=== PATIENT | female | born 1940 | race African-American/Black ===

== ENCOUNTER 2016-12-16 14:58 | Emergency (ER) | payer MEDICARE, OTHER ==
[2016-12-16 13:44] LABS: BASOPHILS 0.4 %; BASOPHILS ABSOLUTE 0.06 10/3/uL (0.0-0.16); EOSINOPHILS 0.4 %; EOSINOPHILS ABSOLUTE 0.05 10/3/uL (0.0-0.53); ER CBC TAT 0 Hrs 03 Mins; HEMATOCRIT 35.9 % (36.0-48.0); HEMOGLOBIN 11.5 g/dL (12.0-16.0); IMMATURE GRANULOCYTES 0.5 %; IMMATURE GRANULOCYTES ABSOLUTE 0.07 10/3/uL (0.0-0.11); LYMPHOCYTES 13.9 %; LYMPHOCYTES ABSOLUTE 1.96 10/3/uL (0.67-4.30); MEAN CORPUSCULAR HEMOGLOB 28.8 pg (26.0-34.0); MEAN PLATELET VOLUME 9.9 fL (9.2-13.0); MONOCYTES 12.5 %; MONOCYTES ABSOLUTE 1.76 10/3/uL (0.21-1.20); NEUTROPHILS 72.3 %; NEUTROPHILS ABSOLUTE 10.17 10/3/uL (2.02-8.40); PLATELET COUNT 322 10/3/uL (150-400); RBC DISTRIBUTION WIDTH 14.7 % (12.0-16.0); RED CELL COUNT 3.99 10/6/uL (4.0-5.6); WHITE BLOOD CELLS 14.1 10/3/uL (4.5-10.5)
[2016-12-16 13:45] LABS: MANUAL DIFF NO %
[2016-12-16 13:54] LABS: INTERNATIONAL NORMAL RATI 1.1 UNITS (-); PROTIME (NOT ORD) 13.7 SEC (12.0-14.5)
[2016-12-16 14:02] LABS: A/G RATIO 0.9 (0.7-1.9); ALBUMIN 3.8 G/DL (3.5-5.0); ALKALINE PHOSPHATASE 137 U/L (45-117); CALCIUM, SERUM 9.2 MG/DL (8.5-10.4); GFR AFRICAN AMERICAN 7 ML/MIN (>=60); GFR NON AFRICAN AMERICAN 6 ML/MIN (>=60); GLOBULIN 4.2 G/DL (2.5-4.1); POTASSIUM, SERUM 3.6 MMOL/L (3.5-5.3); SGOT(AST) 12 U/L (5-40); SGPT(ALT) 15 U/L (5-65); SODIUM, SERUM 138 MMOL/L (135-148); TOTAL BILIRUBIN 0.4 MG/DL (0-1.2); TROPONIN I 0.04 NG/ML (<0.05)
[2016-12-16 14:03] LABS: BUN (BLOOD UREA NITROGEN) 26 MG/DL (6-23); CHLORIDE, SERUM 92 MMOL/L (96-112); CO2 (CARBON DIOXIDE) 34 MMOL/L (24-34); GLUCOSE, SERUM 178 MG/DL (60-99)
[~2016-12-16 14:58] MED LIST: APRES25 PO; ASAB PO; CARDCD240 PO; CARTIA XT240 MG/24 PO; COREG25 PO; COREG6 PO; HUMALOGMIX SC; MEPERITAB50 MG PO; MEVACOR PO; NOVOLOGMIX SC; PLAVIX PO; PR12.5 PO; PR25 PO; SEVE800T PO
== END 2016-12-16 15:59 | disposition home or self-care (01) ==
LOC: ER 14:58
PROVIDERS: Emergency Medicine
DX: R00.1 Bradycardia, unspecified (principal); I10 Essential (primary) hypertension; Z88.5 Allergy status to narcotic agent; Z79.82 Long term (current) use of aspirin
CPT/HCPCS: 71010; 80053; 84484; 85025; 85610; 93005; 99284

== ENCOUNTER 2016-12-21 10:40 | Inpatient (IN) | payer MEDICARE, OTHER ==
--- NOTE | ~2016-12-21 | CN ---
Consultation Report [facility] [address] [place]. [address] NAME: ERIN MADISON : 40 STATUS : ADM IN PAT#: [id number] AGE: 76 ADM/REG DATE : 12/21/16 MR#: [id number] REPORT SERV DATE: 01/10/17 DICTATED BY: EDWIN MANUEL DATE: 01/10/17 REPORT STATUS : Draft TRANSCRIBED BY: MODCas DATE: 01/10/17 DATE OF CONSULTATION: 01/10/2017 HISTORY OF PRESENT ILLNESS: This is a 76-year-old white female, while in a hospitalization related to peripheral vascular disease, she required a right BKA this admission, and also developed encephalopathy. She has been followed by Neuro with extensive workup. Some question of autoimmune vasculitis. She has been treated with IV steroids, and is making some improvement. Coronary artery disease, status post stent and CAB; history of hypertension; diabetes mellitus; end-stage renal disease, on hemodialysis. SOCIAL HISTORY: Negative for EtOH or nicotine. FAMILY HISTORY: Negative for colon cancer. PAST MEDICAL HISTORY/PAST SURGICAL HISTORY: She is off all antibiotics currently and off all blood thinners. She is status post cholecystectomy. Has had some constipation, on MiraLAX. Had some bloody stools last night. Hemoglobin 7.1, now 8.2 after one unit. She has had no recurrent bleeding. No nausea or vomiting. She is on Protonix. Also had new onset of atrial fibrillation with rapid ventricular rate; Cardiology consult pending, is on therapy. PHYSICAL EXAMINATION: GENERAL: Arousable, black female, but very lethargic. HEENT: Anicteric. NECK: Negative. CHEST: Clear to percussion. HEART: Irregular rate and rhythm. ABDOMEN: Soft. No marked tenderness. Bowel sounds present. Nondistended. EXTREMITIES: Again, pertinent for status post right BKA. NEUROLOGICAL: Pertinent for encephalopathy. ASSESSMENT: 1. Peripheral vascular disease, status post right njlmt-ogje-yvfvfxbtas. 2. Encephalopathy, questionable autoimmune vasculitis, on IV steroids, improving. 3. Hypertension. 4. Diabetes mellitus. 5. End-stage renal disease, hemodialysis. 6. Coronary artery disease, status post stents, status post coronary artery bypass. 7. Constipation, on MiraLAX. 8. Bloody bowel movements last night, no recurrence. Hemoglobin 7.1, now 8.2 after one unit. 9. Atrial fibrillation with rapid ventricular rate. SUGGESTIONS: 1. Continue to follow hemoglobins and hematocrits. 2. Continue Protonix. Consultation Report [place] [address] [place] [address] NAME: ERIN MADISON : 40 STATUS : ADM IN PAT#: [id number] AGE: 76 ADM/REG DATE : 12/21/16 MR#: [id number] REPORT SERV DATE: 01/10/17 DICTATED BY: EDWIN MANUEL DATE: 01/10/17 REPORT STATUS : Draft TRANSCRIBED BY: BRY DATE: 01/10/17 3. If recurrent GI bleeding, we will get a GI bleeding scan . We will follow with you. Thank you very much for the consultation. DAVID/BRY Edwin Manuel M.D. / [id number] CC: Kevin Goodwin M.D.
--- NOTE | ~2016-12-21 | EEG ---
Electroencephalogram [place] [id number] [place]. [address] NAME: ERIN MADISON : 40 STATUS : ADM IN PAT#: [id number] AGE: 76 ADM/REG DATE : 12/21/16 MR#: [id number] REPORT SERV DATE: 01/04/17 DICTATED BY: TRISTIN GALVEZ DATE: 01/04/17 REPORT STATUS : Draft TRANSCRIBED BY: BRY DATE: 01/04/17 ORDERING PHYSICIAN: Bonny Zhao [facility] EEG NUMBER: [id number]. REASON FOR EEG: Altered mental status, encephalopathy. 23 surface electrodes, 10-20 international placement was used. The patient was noted to be drowsy and asleep throughout this study. The background activity consisted of moderate voltage, poorly organized, 6-7 cycles per second located in the posterior head regions. The salient feature of this EEG was appearance of intermittent bilaterally synchronous anterior high-voltage triphasic and biphasic waveforms. No significant asymmetry of cerebral activity was present. Photic stimulation did not bring out additional abnormality. The patient's satellite project site monitor shows sinus tachycardia, most likely atrial fibrillation with heart rate of approximately 100 beats per minute. IMPRESSION: MARKEDLY ABNORMAL EEG CHARACTERIZED BY PRESENCE OF BIPHASIC AND TRIPHASIC SLOW WAVE COMPLEXES SUGGESTIVE OF PRESENCE OF UNDERLYING METABOLIC ENCEPHALOPATHY. NO PAROXYSMAL EPILEPTIFORM ACTIVITY WAS SEEN DURING THE STUDY. CLINICAL CORRELATION IS RECOMMENDED. SANJANA/BRY Tristin Galvez MD / [id number] CC: Kevin Goodwin M.D.
--- NOTE | ~2016-12-21 | OP ---
Record Of Operation [facility] [address] [place]. [address] NAME: ERIN CAMPO : 40 STATUS : ADM IN PAT#: [id number] AGE: 76 ADM/REG DATE : 12/21/16 MR#: [id number] REPORT SERV DATE: 12/28/16 DICTATED BY: CAITY ROBERSON DATE: 12/28/16 REPORT STATUS : Draft TRANSCRIBED BY: MODL DATE: 12/28/16 DATE OF PROCEDURE: 12/25/2016 SURGEON: Caity Roberson M.D. CLEARANCE DIVER: oHward. PREPROCEDURE DIAGNOSIS: Right leg ischemia with ongoing pain. POSTPROCEDURE DIAGNOSIS: Right leg ischemia with ongoing pain. PROCEDURE PERFORMED: Right below-knee amputation. ANESTHESIA: General. SPECIMENS: Right leg. BLOOD LOSS: 20 mL. COMPLICATIONS: None. INDICATIONS: Erin Campo is 76 years old, who had an occluded bypass graft that could not be salvaged. She had persistent ongoing ischemia. She was offered below-knee amputation. Risks, benefits, and alternatives were discussed with her and her family. They understood and wished to proceed. OPERATIVE COURSE: The patient was brought to the operating room and placed in supine position on the operating room table. The patient had general anesthetic without complications. Right leg was prepped and draped in sterile fashion. A time-out was performed and identified the correct patient, procedure, and site. We began by making a transverse incision 8 cm distal to the tibial tuberosity. We carried this incision two- thirds of way around the circumference of the calf. We then made longitudinal incisions down the leg toward the ankle from this point. We deepened the incision at all locations through the fascia with the cautery. We then divided the anterior compartment musculature with the Bovie cautery. We identified and isolated the anterior tibial neurovascular bundle and divided it between suture ligatures. We then divided some of the posterior compartment musculature. We then cleaned off the tibial and fibular surfaces. We then transected the tibia even with the skin level using a Gigli saw. We then transected the fibula just cephalad to this using a bone shear. We then transected the posterior musculature just behind the fibular surface. This left a nice generous flap. We isolated the peroneal and posterior tibial neurovascular bundles and suture ligated these high in the wound. We trimmed the posterior flap to fit the wound. We irrigated with saline. We did not use a tourniquet. We then closed the deeper layers with interrupted Vicryl suture. The subdermal layers were closed with interrupted Vicryl suture. The skin was closed with a stapler. A sterile dressing was applied. The patient tolerated the procedure well. She was awakened and transferred to recovery in stable condition. Record Of Operation [address] [place]. [address] NAME: ERIN CAMPO : 40 STATUS : ADM IN [facility]#: [id number] AGE: 76 ADM/REG DATE : 12/21/16 MR#: [id number] REPORT SERV DATE: 12/28/16 DICTATED BY: CAITY ROBERSON DATE: 12/28/16 REPORT STATUS : Draft TRANSCRIBED BY: BRY DATE: 12/28/16 [facility]/BRY Caity Roberson MD / [id number] CC: Caity Roberson MD
--- NOTE | ~2016-12-21 | CN ---
Consultation Report [facility] [address] [place]. [address] NAME: ERIN MADISON : 40 STATUS : ADM IN PAT#: [id number] AGE: 76 ADM/REG DATE : 12/21/16 MR#: [id number] REPORT SERV DATE: 01/01/17 DICTATED BY: BONNY MELCHOR DATE: 01/01/17 REPORT STATUS : Draft TRANSCRIBED BY: MODL DATE: 01/01/17 NEUROLOGY CONSULTATION DATE OF CONSULTATION: 01/01/2017 REASON FOR CONSULTATION: Acute encephalopathy. PCP: Unknown. QUAD STAYER: Dr. Kevin Goodwin. INFECTIOUS DISEASE: Dr. Rosario. HISTORY OF PRESENT ILLNESS: The patient is a 76-year-old female, who was admitted to the hospital on 12/21/2016 with diarrhea and left lower extremity pain. The patient's daughter mentioned that the patient's cognition was "normal" when she was admitted. She had no trouble with mentation. She was awake, alert, and seemed to be very appropriate. However since her admission, she has been drowsy, minimally verbal, and has hallucinations. During this hospitalization, the patient ended up having a right afzkm-prc-csmu amputation. She is also in end-stage renal disease and gets dialysis on Wednesday, Wednesday, and Wednesday. PAST MEDICAL HISTORY: End-stage renal disease, hypertension, diabetes, GERD, peripheral vascular disease, coronary artery disease, bradycardia, and hyperlipidemia. PAST SURGICAL HISTORY: Coronary artery bypass grafting, cardiac stent placement, bilateral cataract extraction with lens implantation, cholecystectomy, AV fistula placement, and recent right bilateral knee amputation. CURRENT MEDICATION LIST: 1. Maxipime 1 g IV daily. 2. Vancomycin IV. 3. NovoLog 70/30, 20 units a.c. and NovoLog 70/30, 10 units. 4. Megace 200 mg daily. 5. Claritin 10 mg daily. 6. Lexapro 10 mg daily. 7. Cardizem CD 240 mg daily. 8. Plavix 75 mg daily. 9. Aspirin 81 mg daily. 10.Apresoline 25 mg q.8 hours p.r.n. 11.Colace 100 mg daily. 12.Coreg 6.25 mg b.i.d. 13.Lipitor 10 mg at bedtime. 14.Percocet 5/325 mg q.4 hours p.r.n. 15.Renvela 2400 mg with meals. Consultation Report [address] [place]. [address] NAME: ERIN MADISON : 40 STATUS : ADM IN PAT#: [id number] AGE: 76 ADM/REG DATE : 12/21/16 MR#: [id number] REPORT SERV DATE: 01/01/17 DICTATED BY: BONNY MELCHOR DATE: 01/01/17 REPORT STATUS : Draft TRANSCRIBED BY: BRY DATE: 01/01/17 16.Protonix 40 mg daily. ALLERGIES: CODEINE. SOCIAL HISTORY: The patient lives with 2 granddaughters. She does not smoke, drink alcohol, or use illicits. FAMILY HISTORY: Unknown at this point. REVIEW OF SYSTEMS: Unable to obtain from the patient. PHYSICAL EXAMINATION: GENERAL: The patient is a 76-year-old female, who stands 5 foot 7 inches and weighs 164 pounds. She is afebrile. VITAL SIGNS: Heart rate 83, respiratory rate 16, O2 saturations on 2 L nasal cannula 93%, and blood pressure 160/63. NEUROLOGIC: The patient is lethargic. She will open her eyes and attempt to communicate to verbal commands and noxious stimuli. Pupils are 3 mm, they are sluggish to react. She can stick out her tongue on command and can smile. It is difficult to assess the rest of her cranial nerves. She can move her upper extremities spontaneously and wiggle her fingers and her left toes upon command. Upper DTRs 2+ bilaterally. Left patellar reflex 2+ bilaterally. Right pgrdr-sfw-wiqe amputation, it is in a dressing and binder, unable to assess sensation. LABORATORY DATA: CBC: White count is 26,000, H and H 8.2 and 25, and platelets are 502. BMP shows a BUN of 63 and creatinine of 8.55. Procalcitonin 9.88. B12 normal. TSH 0.1888. CT of the brain shows mild atrophy, no acute changes. ASSESSMENT/PLAN: Acute encephalopathy, etiology is most likely multifactorial. The patient is in end-stage renal disease. She has sepsis. Infectious Disease is currently working on the etiology of her sepsis. The patient will undergo an MRI of the brain without gadolinium. She will have an echocardiogram and carotid duplex study. She will also have an EEG performed today. Speech therapy will be consulted on the patient's dysphagia. Currently the patient is n.p.o. Few lab values will be checked. Her medications will be evaluated for possible contribution to her encephalopathy. Thank you again for including us in consultation. We will continue to follow with you. JIE/BRY Bonny Melchor, [facility] Consultation Report [facility] [address] [facility] [place]. [address] NAME: ERIN MADISON : 40 STATUS : ADM IN [facility]#: [id number] AGE: 76 ADM/REG DATE : 12/21/16 MR#: [id number] REPORT SERV DATE: 01/01/17 DICTATED BY: BONNY MELCHOR DATE: 01/01/17 REPORT STATUS : Draft TRANSCRIBED BY: BRY DATE: 01/01/17 / [id number] CC: Rogerio Oates M.D.
--- NOTE | ~2016-12-21 | OP ---
Record Of Operation [facility] [address] [place]. [address] NAME: ERIN CAMPO : 40 STATUS : ADM IN PAT#: [id number] AGE: 76 ADM/REG DATE : 12/21/16 MR#: [id number] REPORT SERV DATE: 12/21/16 DICTATED BY: CAITY ROBERSON DATE: 12/21/16 REPORT STATUS : Draft TRANSCRIBED BY: MODL DATE: 12/21/16 DATE OF PROCEDURE: 12/21/2016 WILDLIFE OFFICER: None. PREPROCEDURE DIAGNOSES: 1. Right lower extremity pain. 2. History of peripheral arterial disease. POSTPROCEDURE DIAGNOSES: 1. Occluded AV graft. 2. Occluded SFA and popliteal stents. 3. Limited runoff. PROCEDURE PERFORMED: 1. Ultrasound access, left common femoral artery. 2. Aortogram. 3. First order catheterization, right lower extremity. 4. Right lower extremity arteriogram. INDICATIONS: Erin Campo is 76 years old. She presented to the hospital today from home after missing dialysis due to falling and having right leg pain. Talking to the family, she has had right leg pain for several weeks. She has a history of stents and a bypass graft on that side. The pain is bad enough to where she cannot bear weight on the leg. She was evaluated in the emergency department, found to have no pulses distally. Ultrasound demonstrated occluded bypass graft. She had a potassium near 7 and was sent for urgent dialysis prior to me being able to take her to the operating room. When she was done with dialysis, she was offered arteriogram. Risks, benefits, alternatives were discussed with her family. They understood and wished to proceed. OPERATIVE COURSE: The patient was brought to the operating room, placed in supine position on the operating room table. The patient had MAC anesthetic without complications. Groins and right leg were prepped and draped in sterile fashion. A time-out was performed. Identified the correct patient, procedure, and site. We began by using ultrasound to identify the left common femoral artery, it was patent with moderate to severe disease. We anesthetized the skin and accessed the artery under ultrasound guidance. Once we had access, a wire was passed through the abdominal aorta. The needle was removed. We placed a 5-Lithuanian sheath. Over the wire, we passed a UF catheter, placed in the abdominal aorta and performed aortography demonstrating brisk flow through the aortoiliac segment without flow- limiting stenosis in the aorta, common or external iliac arteries. We cannulated the contralateral common iliac artery and passed the wire and catheter down to the right external iliac artery. We performed right lower extremity arteriogram demonstrating patency of the common femoral artery, common femoral artery stent, and profunda femoris system. There was a small nubbin of patent graft of about half a centimeter, which was incidentally being jailed by the stent. The SFA was completely occluded and full of stents. IV heparin was being given throughout the case. We sized up to a 6-Lithuanian sheath. We then tried to Record Of Operation [place] [id number] [facility] [place]. [address] NAME: ERIN CAMPO : 40 STATUS : ADM IN [facility]#: [id number] AGE: 76 ADM/REG DATE : 12/21/16 MR#: [id number] REPORT SERV DATE: 12/21/16 DICTATED BY: CAITY ROBERSON DATE: 12/21/16 REPORT STATUS : Draft TRANSCRIBED BY: BRY DATE: 12/21/16 use a wire and catheter to gain access into the fem-peroneal bypass graft or the [place] SFA, neither could be performed. We could not get access to the bypass graft secondary to the common femoral stent. The SFA was too diseased to access and was too chronic for a wire or catheter passage. Distal runoff demonstrated wispy collaterals all the way down to the distal third of the ankle, where there was visualization of some peroneal artery that terminated at the ankle into its usual branches. Filling in the foot was not good, it was not felt that this was an adequate target for repeat PTFE bypass graft especially in a patient in her current condition. She was having respiratory difficulty and had just had dialysis for potassium near 7. Decision was made to terminate the procedure. Wires and catheters were withdrawn. We wired out the sheath and brought it to the left side of the patient. Arteriogram demonstrated good location of the sheath and poor size of the artery. The sheath and wire were removed and pressure was held on the groin for 20 minutes. A pressure dressing was applied. The patient tolerated the procedure well. She was awakened and transferred to recovery in stable condition. ZOIE/BRY Caity Roberson MD / [id number] CC: Kevin Goodwin M.D.
--- NOTE | ~2016-12-21 | DS ---
Discharge Summary [facility] [address] [place]. [address] NAME: ERIN CAMPO : 40 STATUS : DIS IN PAT#: [id number] AGE: 76 ADM/REG DATE : 12/21/16 MR#: [id number] REPORT SERV DATE: 02/06/17 DICTATED BY: DATE: REPORT STATUS : Draft TRANSCRIBED BY: MODL DATE: 02/05/17 ADMISSION DATE: 12/21/2016 DISCHARGE DATE: 01/19/2017 CHIEF COMPLAINT/HISTORY OF PRESENT ILLNESS: Ms. Campo is a 76-year-old black female with end-stage renal disease who presented to the emergency department with diarrhea, right lower extremity pain, found to have ischemic foot in the emergency department and admitted for further evaluation. COURSE IN THE HOSPITAL: Patient was admitted for evaluation of diarrhea and ischemic foot. Vascular Surgery was consulted. Pain medicines were provided. Stool was checked for C diff. The day of admission, which was 12/21/2016, Vascular took her for aortogram. She was found to have right femoral canal occlusion and plans were made for a future BKA as it was felt the limb was unsalvageable. She also had dialysis the day of admission. Family was given time to consider, given her multiple medical problems and advanced age, the BKA. This was considered for a couple of days. She continued to have significant pain. She underwent right BKA on 12/25/2016. Initially within the first 24 hours, she was stable; however, then developed significant confusion. She had been slightly confused the first couple of days, but then, significantly worsened. Initially, it was felt it may be due to pain medicine; however, the confusion actually continued to worsen and on the , CT of the head was obtained and was found to be negative. IV pain medicines were discontinued. Despite this, patient remained lethargic for multiple days. Neurology consult was placed given the fact that her encephalopathy did not clear with discontinuation of medicines. She had evaluation for seizures, and she had an EEG that showed diffuse slowing of cerebral activity. ID also saw the patient during this hospitalization given persistent leukocytosis. Antibiotics were maintained; however unfortunately, the patient's symptoms never seemed to clear as far as her mental status was concerned. She had significant failure to thrive and eventually inevitably, it was decided to send her out on hospice. PERTINENT LABS AND DIAGNOSTIC STUDIES: CT of the thoracic and lumbar spine negative. MRI brain: No acute changes. EEG with slowing. See labs for full details. DISCHARGE PLAN: [facility] See medication reconciliation for medications. FINAL DIAGNOSES: 1. Ischemic right foot, right below-knee amputation. 2. Encephalopathy. 3. End-stage renal disease. 4. Diabetes. 5. Hypertension. 6. Peripheral vascular disease. 7. Leukocytosis. 8. Coronary artery disease. Discharge Summary [address] [address] NAME: ERIN CAMPO : 40 STATUS : DIS IN PAT#: [id number] AGE: 76 ADM/REG DATE : 12/21/16 MR#: [id number] REPORT SERV DATE: 02/06/17 DICTATED BY: DATE: REPORT STATUS : Draft TRANSCRIBED BY: BRY DATE: 02/05/17 STACI/BRY HARI Urena / [id number] CC: Kevin Goodwin M.D.
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
--- NOTE | ~2016-12-21 | OP ---
Record Of Operation [facility] [address] [place]. [address] NAME: ERIN CAMPO : 40 STATUS : DIS IN PAT#: [id number] AGE: 76 ADM/REG DATE : 12/21/16 MR#: [id number] REPORT SERV DATE: 01/20/17 DICTATED BY: CAITY ROBERSON DATE: 01/19/17 REPORT STATUS : Draft TRANSCRIBED BY: MODL DATE: 01/19/17 DATE OF PROCEDURE: 01/16/2017 SURGEON: Caity Roberson MD. PLATE ROLLER: Howard. PREPROCEDURE DIAGNOSIS: Necrotic below-knee amputation stump. POSTPROCEDURE DIAGNOSIS: Necrotic below-knee amputation stump. PROCEDURE PERFORMED: Right above-knee amputation. ANESTHETIC: General. SPECIMENS: Right leg. BLOOD LOSS: 20 mL. COMPLICATIONS: None. INDICATIONS: Erin Campo is 76 years old. I recently performed a right below-knee amputation for ischemic vascular disease. She was seen in postop and had perfectly fine healing stump and then, I was called back to see her two weeks in the course for staple removal. When I went to take the zahra out, the stump had necrotic appearance with separation of the wound and liquefied material at the wound edge. She was offered further amputation. Risks, benefits, and alternatives were discussed. She understood and wished to proceed. OPERATIVE COURSE: The patient was brought to the operating room, placed supine position on the operating room table. The patient had general anesthetic without complications. Right leg was prepped and draped in a sterile fashion. By also excluding the necrotic portion of the BKA with Ioban, a time-out was performed, identified the correct patient, procedure, site. We began by making a fishmouth incision centered just above the knee in standard fashion. We deepened the incision with cautery through the subcutaneous fat and the fascia. The muscle compartments were divided anterior and posteriorly. We did encounter a prosthetic vascular graft in the posterior medial portion of the leg. This was taken back hind of the wound and then ligated and divided and passed off the field. We divided all the musculature as we found the [place] vasculature and divided this between suture ligatures as well. The artery was occluded. We next debrided the periosteum back up into the leg. We divided the femur bone just above the skin surface with a power saw. We gave it an anterior bevel. We irrigated the wound copiously with saline. We closed the deeper layers with interrupted 2-0 Vicryl suture. The subdermal layers were closed with interrupted 3-0 Vicryl suture. The skin was closed with a skin stapler. Sterile dressing of Xeroform, 4x4s, Kerlix roll, and Errol wrap were applied. The patient tolerated the procedure well. She was awakened and sent to recovery in stable condition. Record Of Operation [address] [place]. [address] NAME: ERIN CAMPO : 40 STATUS : DIS IN PAT#: [id number] AGE: 76 ADM/REG DATE : 12/21/16 MR#: [id number] REPORT SERV DATE: 01/20/17 DICTATED BY: CAITY ROBERSON DATE: 01/19/17 REPORT STATUS : Draft TRANSCRIBED BY: BRY DATE: 01/19/17 [facility]/BRY Caity Roberson MD / [id number] CC: Caity Roberson MD
--- NOTE | ~2016-12-21 | HP ---
History And Physical [place] [id number] [facility] [place]. [address] NAME: ERIN CAMPO : 40 STATUS : ADM IN PAT#: [id number] AGE: 76 ADM/REG DATE : 12/21/16 MR#: [id number] REPORT SERV DATE: 12/21/16 DICTATED BY: DATE: REPORT STATUS : Draft TRANSCRIBED BY: MODL DATE: 12/21/16 DATE OF ADMISSION: 12/21/2016 CHIEF COMPLAINT: Diarrhea, right lower extremity pain. HISTORY OF PRESENT ILLNESS: Ms. Campo is a 76-year-old black female with end-stage renal disease, dialyzes on [address] on Wednesday, Wednesday, and Wednesday and history of significant peripheral vascular disease, coronary artery disease as well. She presents to the hospital with diarrhea since Wednesday, the number of which I am unclear right now as she is currently sedated post pain medication. She also presented with right foot pain as well. She was found to have no pulse to her foot, it was cool. Her ultrasound shows that she has arterial occlusion of a previous bypass that has no flow identified to the right posterior tibial artery. Given all this, she is going to be admitted for further evaluation. It is of note that she has recently been on Cipro. Denies any fevers chills, nausea, or vomiting. PAST MEDICAL HISTORY: End-stage renal disease; hypertension; diabetes; reflux; peripheral vascular disease; coronary artery disease, status post bypass and drug-eluting stent last year; bradycardia; hyperlipidemia; cataracts; cholecystectomy; AV fistula. ALLERGIES: CODEINE. FAMILY MEDICAL HISTORY: Unable to be obtained from the patient right now as she is currently sedated. SOCIAL HISTORY: The patient lives with two granddaughters. No tobacco, alcohol, or illicit drug use. MEDICATIONS: Lexapro, hydralazine, 70/30 insulin, Zestril, Imodium, Claritin, Megace, Prilosec, Zofran, Phenergan, Renvela, and Diovan HCT. REVIEW OF SYSTEMS: A 12-point review of systems obtained as best I could as the patient is currently sedated and negative with the exception of that in the HPI. PHYSICAL EXAMINATION: VITAL SIGNS: Temperature 100.3, blood pressure is 204/71, pulse 78, respiratory rate 18, and O2 saturation is 100%. GENERAL: This is a cooperative black female, sedated post pain medicine. HEENT: Normocephalic and atraumatic. Conjunctivae clear. Sclerae nonicteric. Oral mucosa dry. NECK: No lymphadenopathy. AV fistula to the right with positive thrill and bruit. LUNGS: Respirations are even and unlabored. Breath sounds clear to auscultation. HEART: Rate is regular. No murmur, rub, or gallop. ABDOMEN: Soft and nontender, but I could not do a good exam as she is currently on dialysis machine. EXTREMITIES: I really could not feel pulses in either extremity and the right lower History And Physical [facility] [address] [place]. [address] NAME: ERIN CAMPO : 40 STATUS : ADM IN [facility]#: [id number] AGE: 76 ADM/REG DATE : 12/21/16 MR#: [id number] REPORT SERV DATE: 12/21/16 DICTATED BY: DATE: REPORT STATUS : Draft TRANSCRIBED BY: MODL DATE: 12/21/16 extremity cooler than left. SKIN: She has skin that is dry and scaly. No unusual rashes. PERTINENT LABORATORY AND X-RAY FINDINGS: Right lower extremity duplex as described above. Sodium 130, potassium 6.3, chloride 96, CO2 of 19, BUN of 69, creatinine of 9.4, calcium 9.4, albumin 3.4. LFTs unremarkable. WBC 22,000; H and H 12 and 37; platelets 295,000. IMPRESSION: 1. Diarrhea. 2. Ischemic right foot. 3. End-stage renal disease. 4. Diabetes. 5. Leukocytosis. 6. Hypertension. 7. Peripheral vascular disease. 8. Coronary artery disease. 9. Hyperkalemia. PLAN: We will check stool for C diff. Dialysis today. Vascular is going to see the patient and do an arteriogram later after dialysis. Pain medicine and nausea medicine as needed. We will hold off on any antibiotics for now. Usual medications as appropriate. Further orders and recommendations pending clinical course. MIGUELITO HARI Urena / [id number] CC: Kevin Goodwin M.D.
--- NOTE | ~2016-12-21 | CN ---
Consultation Report [facility] [address] [place]. [address] NAME: ERIN MADISON : 40 STATUS : ADM IN PAT#: [id number] AGE: 76 ADM/REG DATE : 12/21/16 MR#: [id number] REPORT SERV DATE: 01/01/17 DICTATED BY: ROGER RINALDI DATE: 01/01/17 REPORT STATUS : Draft TRANSCRIBED BY: MODCas DATE: 01/01/17 INFECTIOUS DISEASE CONSULT DATE OF CONSULTATION: REASON FOR REFERRAL: Evaluation and treatment of unexplained leukocytosis. HISTORY OF PRESENT ILLNESS: The patient is a 76-year-old female. She has history of hypertension, diabetes mellitus, gastroesophageal reflux disease, coronary artery disease, hyperlipidemia, end-stage renal disease for which she is on hemodialysis, extensive history of peripheral vascular disease. She came in on 12/21, she had some gastrointestinal complaints and diarrhea, not feeling well, but she also had a cold pulseless foot that was noted in the emergency room when she complained of right foot pain. She was found to have an occluded superficial femoral artery and old popliteal stent was occluded, last procedure was done on 12/21. She had a low-grade fever, then a mild leukocytosis of 22.1. She was given perioperative Ancef for that procedure, but things continued to worsen and so on the , she had to have a [id number] amputation and got another dose of perioperative Ancef. White blood cell count gradually decreased down to 13.3 on the , 12.9 on the ; on the A, it went up to 15.4 the next day, then 17.6 on the , 15.4 on the , 24,000 on the , 26.1 yesterday, 26 today with no bandemia. She has been on the steroid. She is not having diarrhea. A chest x-ray shown no distinct infiltrate, but definitely has some haziness in the bases. Blood cultures were checked at admission and were negative, and rechecked again yesterday and remain negative. She was started two days ago empirically on vancomycin and cefepime, but has not had an effect thus far on the white blood cell count. She has shown no tenderness in her abdomen. No wounds. No signs of infection around her hemodialysis access in the right upper extremity. Discussed her at some length with her daughter and she has had no history of unusual environmental exposures or signs of infection or confusion prior to coming in. Since she has been here though, there has been intermittent waxing and waning confusion with really not returning back to baseline per her daughter. PAST MEDICAL HISTORY: Otherwise unremarkable. MEDICATIONS: As mentioned above. ALLERGIES: NO KNOWN ANTIMICROBIAL ALLERGIES. SOCIAL HISTORY: She is nonsmoker. No history of alcohol or substance abuse. Previously living with family prior to this. FAMILY HISTORY: Noncontributory. PHYSICAL EXAMINATION: GENERAL: Ill-appearing, elderly, female, lying quietly in bed. Shaking Consultation Report [facility] [address] [facility] [place]. [address] NAME: ERIN MADISON : 40 STATUS : ADM IN [facility]#: [id number] AGE: 76 ADM/REG DATE : 12/21/16 MR#: [id number] REPORT SERV DATE: 01/01/17 DICTATED BY: ROGER RINALDI DATE: 01/01/17 REPORT STATUS : Draft TRANSCRIBED BY: BRY DATE: 01/01/17 when spoken to directly. She will wake up and answer very simple questions like how do you feel, does something hurt. She knows her daughter but is not oriented to place and time, and quickly relapses back to sleep within seconds when not being spoken to. VITAL SIGNS: Temperature 98.3, pulse 83, respirations 20, blood pressure 159/63. Weight 71 kg. HEENT: Sclerae clear. Unable to visualize the mouth very well. No obvious lesions on the forward part of the mouth. NECK: Supple without meningeal signs or lymphadenopathy. LUNGS: There are crackles heard bilaterally in the bases. HEART: Regular rate and rhythm. Fistula in right upper extremity shows no signs of infection. ABDOMEN: Soft. No response to palpation. Positive bowel sounds were heard. Her BKA site in the right lower extremity is healing well without signs of infection. There is no rashes or sores elsewhere. LABORATORY DATA: White blood cell count as previously described. Today's hematocrit is 25, platelets 502, BUN and creatinine 63 and 8.55. Her procalcitonin shortly after admission was 2.03, it was 9.88 yesterday. Liver function tests have been mildly elevated. Alkaline phos when she came in 189, is back down to normal when checked yesterday. She did have a mildly elevated AST of 151. Bilirubin 0.3. IMPRESSION: Leukocytosis and confusion. No obvious source other than I would be concerned with her confusion that she has had recurrent episodes of aspiration. I see no signs of infection elsewhere and do not think it is a central nervous system infection. RECOMMENDATIONS: 1. Can likely stop the vancomycin. 2. Continue cefepime. 3. Add Flagyl. Finally, I will follow the patient with you. I appreciate very much your consulting on this patient. DUANE Roger Rinaldi M.D. / [id number] CC: Kevin Goodwin M.D.
[2016-12-21 10:19] LABS: HEMATOCRIT 37.5 % (36.0-48.0); HEMOGLOBIN 12.2 g/dL (12.0-16.0); MEAN CORPUS HGB CONC 32.5 g/dL (32.0-36.0); MEAN CORPUSCULAR HEMOGLOB 29.3 pg (26.0-34.0); MEAN CORPUSCULAR VOLUME 90.1 fL (80-100); PLATELET COUNT 295 10/3/uL (150-400); RBC DISTRIBUTION WIDTH 15.3 % (12.0-16.0); RED CELL COUNT 4.16 10/6/uL (4.0-5.6)
[2016-12-21 10:20] LABS: ER CBC TAT 0 Hrs 09 Mins; MANUAL DIFF YES %; WHITE BLOOD CELLS 22.1 10/3/uL (4.5-10.5)
[2016-12-21 10:34] LABS: ER DIFF TAT 0 Hrs 23 Mins; LYMPHOCYTES 14 %; LYMPHOCYTES ABSOLUTE (CALC) 3.09 10/3/uL (0.67-4.30); MONOCYTES 9 %; MONOCYTES ABSOLUTE (CALC) 1.99 10/3/uL (0.21-1.20); NEUTROPHILS ABSOLUTE (CALC) 17.02 10/3/uL (2.02-8.40); PLATELET ESTIMATE ADQ (ADEQUATE); SEGMENTED NEUTROPHIL (0) 77 %; TOTAL NUCLEATED CELLS 100
[2016-12-21 10:35] LABS: SCHISTOCYTES FEW (3-10/OIF)
[2016-12-21 10:36] LABS: ELLIPTOCYTES 1+ (3-10/OIF) (0-2/OIF); TARGET CELLS OCC (1-2/OIF) (0-1/OIF)
[2016-12-21 10:39] LABS: A/G RATIO 0.8 (0.7-1.9); ALBUMIN 3.4 G/DL (3.5-5.0); CALCIUM, SERUM 9.4 MG/DL (8.5-10.4); CHLORIDE, SERUM 96 MMOL/L (96-112); GLOBULIN 4.2 G/DL (2.5-4.1); GLUCOSE, SERUM 161 MG/DL (60-99); SGOT(AST) 23 U/L (5-40); SGPT(ALT) 21 U/L (5-65); TOTAL BILIRUBIN 0.7 MG/DL (0-1.2); TOTAL PROTEIN 7.6 G/DL (6.0-8.5)
[2016-12-21 10:40] LABS: ALKALINE PHOSPHATASE 189 U/L (45-117); BUN (BLOOD UREA NITROGEN) 69 MG/DL (6-23); CO2 (CARBON DIOXIDE) 19 MMOL/L (24-34); CREATININE 9.48 MG/DL (0.55-1.02); GFR AFRICAN AMERICAN 4 ML/MIN (>=60); GFR NON AFRICAN AMERICAN 4 ML/MIN (>=60); POTASSIUM, SERUM 6.3 MMOL/L (3.5-5.3); SODIUM, SERUM 130 MMOL/L (135-148)
[2016-12-21] MEDS ORDERED: CAT1 PO (11:54)
[2016-12-21] MEDS ORDERED: HALF81 PO (11:56)
[2016-12-21] MEDS ORDERED: PLAVIX PO (11:56)
[2016-12-21] MEDS ORDERED: PROAIR HFA INH (11:56)
[2016-12-21] MEDS ORDERED: CARDCD240 PO (11:57)
[2016-12-21] MEDS ORDERED: DSS PO (11:57)
[2016-12-21] MEDS ORDERED: APRES25 PO (11:58)
[2016-12-21] MEDS ORDERED: LEXAPRO10 PO (11:58)
[2016-12-21] MEDS ORDERED: ZESTRIL20 MG PO (11:59)
[2016-12-21] MEDS ORDERED: NOVOPENMIX SC (11:59)
[2016-12-21] MEDS ORDERED: IMOD PO (11:59)
[2016-12-21] MEDS ORDERED: MEGACEUDL PO (12:00)
[2016-12-21] MEDS ORDERED: LIPITOR10 PO (12:00)
[2016-12-21] MEDS ORDERED: CLARIT10 PO (12:00)
[2016-12-21] MEDS ORDERED: PR25 PO (12:01)
[2016-12-21] MEDS ORDERED: PRILO PO (12:01)
[2016-12-21] MEDS ORDERED: DIOVAN HCT320 MG/25 PO (12:02)
[2016-12-21] MEDS ORDERED: RENVELA800 MG PO (12:02)
[2016-12-21] MEDS ORDERED: ZOFRAN4 PO (12:03)
[2016-12-21] MEDS ORDERED: COREG6 PO (12:04)
[2016-12-21] MEDS ORDERED: CIP5 PO (12:06)
[2016-12-22 04:19] LABS: BASOPHILS 0.2 %; BASOPHILS ABSOLUTE 0.03 10/3/uL (0.0-0.16); EOSINOPHILS 0.1 %; EOSINOPHILS ABSOLUTE 0.01 10/3/uL (0.0-0.53); HEMOGLOBIN 11.1 g/dL (12.0-16.0); IMMATURE GRANULOCYTES 0.4 %; IMMATURE GRANULOCYTES ABSOLUTE 0.07 10/3/uL (0.0-0.11); LYMPHOCYTES 4.9 %; MEAN CORPUS HGB CONC 32.9 g/dL (32.0-36.0); MEAN CORPUSCULAR HEMOGLOB 29.4 pg (26.0-34.0); MEAN CORPUSCULAR VOLUME 89.4 fL (80-100); MEAN PLATELET VOLUME 10.5 fL (9.2-13.0); MONOCYTES 11.2 %; MONOCYTES ABSOLUTE 1.82 10/3/uL (0.21-1.20); NEUTROPHILS 83.2 %; NEUTROPHILS ABSOLUTE 13.54 10/3/uL (2.02-8.40); PLATELET COUNT 284 10/3/uL (150-400); RBC DISTRIBUTION WIDTH 15.3 % (12.0-16.0); RED CELL COUNT 3.77 10/6/uL (4.0-5.6); WHITE BLOOD CELLS 16.3 10/3/uL (4.5-10.5)
[2016-12-22 04:21] LABS: HEMATOCRIT 33.7 % (36.0-48.0); MANUAL DIFF NO %
[2016-12-22 04:33] LABS: ALBUMIN 2.9 G/DL (3.5-5.0); CALCIUM, SERUM 8.6 MG/DL (8.5-10.4); CHLORIDE, SERUM 103 MMOL/L (96-112); GFR AFRICAN AMERICAN 6 ML/MIN (>=60); GFR NON AFRICAN AMERICAN 5 ML/MIN (>=60); GLUCOSE, SERUM 162 MG/DL (60-99); PHOSPHORUS, SERUM 6.3 MG/DL (2.5-4.5)
[2016-12-22 04:34] LABS: BUN (BLOOD UREA NITROGEN) 42 MG/DL (6-23); CO2 (CARBON DIOXIDE) 25 MMOL/L (24-34); CREATININE 7.09 MG/DL (0.55-1.02); SODIUM, SERUM 139 MMOL/L (135-148)
[2016-12-23 04:49] LABS: BASOPHILS 0.1 %; BASOPHILS ABSOLUTE 0.01 10/3/uL (0.0-0.16); EOSINOPHILS 0.2 %; EOSINOPHILS ABSOLUTE 0.03 10/3/uL (0.0-0.53); HEMATOCRIT 30.6 % (36.0-48.0); IMMATURE GRANULOCYTES 0.4 %; IMMATURE GRANULOCYTES ABSOLUTE 0.06 10/3/uL (0.0-0.11); LYMPHOCYTES 4.6 %; MANUAL DIFF NO %; MEAN CORPUS HGB CONC 32.7 g/dL (32.0-36.0); MEAN CORPUSCULAR HEMOGLOB 29.5 pg (26.0-34.0); MEAN CORPUSCULAR VOLUME 90.3 fL (80-100); MEAN PLATELET VOLUME 9.8 fL (9.2-13.0); MONOCYTES 12.9 %; MONOCYTES ABSOLUTE 1.95 10/3/uL (0.21-1.20); NEUTROPHILS 81.8 %; NEUTROPHILS ABSOLUTE 12.33 10/3/uL (2.02-8.40); PLATELET COUNT 299 10/3/uL (150-400); RBC DISTRIBUTION WIDTH 15.4 % (12.0-16.0); RED CELL COUNT 3.39 10/6/uL (4.0-5.6); WHITE BLOOD CELLS 15.1 10/3/uL (4.5-10.5)
[2016-12-23 05:11] LABS: ALBUMIN 2.8 G/DL (3.5-5.0); CALCIUM, SERUM 9.4 MG/DL (8.5-10.4); CHLORIDE, SERUM 101 MMOL/L (96-112); CO2 (CARBON DIOXIDE) 23 MMOL/L (24-34); SODIUM, SERUM 138 MMOL/L (135-148)
[2016-12-23 05:16] LABS: BUN (BLOOD UREA NITROGEN) 56 MG/DL (6-23); CREATININE 8.45 MG/DL (0.55-1.02); GFR AFRICAN AMERICAN 5 ML/MIN (>=60); GFR NON AFRICAN AMERICAN 4 ML/MIN (>=60); GLUCOSE, SERUM 87 MG/DL (60-99); PHOSPHORUS, SERUM 7.7 MG/DL (2.5-4.5)
[2016-12-23 05:55] LABS: PROCALCITONIN 2.03 ng/mL (<0.5)
[2016-12-24 05:14] LABS: ALBUMIN 2.8 G/DL (3.5-5.0); CALCIUM, SERUM 9.7 MG/DL (8.5-10.4); CHLORIDE, SERUM 97 MMOL/L (96-112); CO2 (CARBON DIOXIDE) 26 MMOL/L (24-34); GFR AFRICAN AMERICAN 6 ML/MIN (>=60); GFR NON AFRICAN AMERICAN 5 ML/MIN (>=60); GLUCOSE, SERUM 103 MG/DL (60-99); PHOSPHORUS, SERUM 6.8 MG/DL (2.5-4.5); POTASSIUM, SERUM 4.5 MMOL/L (3.5-5.3); SODIUM, SERUM 136 MMOL/L (135-148)
[2016-12-24 05:16] LABS: BUN (BLOOD UREA NITROGEN) 46 MG/DL (6-23); CREATININE 7.38 MG/DL (0.55-1.02)
[2016-12-24 05:19] LABS: HEMATOCRIT 30.8 % (36.0-48.0); HEMOGLOBIN 9.9 g/dL (12.0-16.0); MEAN CORPUS HGB CONC 32.1 g/dL (32.0-36.0); MEAN CORPUSCULAR VOLUME 90.3 fL (80-100); MEAN PLATELET VOLUME 10.6 fL (9.2-13.0); PLATELET COUNT 310 10/3/uL (150-400); RBC DISTRIBUTION WIDTH 15.3 % (12.0-16.0); RED CELL COUNT 3.41 10/6/uL (4.0-5.6); WHITE BLOOD CELLS 13.3 10/3/uL (4.5-10.5)
[2016-12-24 05:23] LABS: MANUAL DIFF YES %
[2016-12-24 05:57] LABS: ANISOCYTOSIS 1+ (5-10/OIF) (0-5/OIF); BAND NEUTROPHILS 2 %; EOSINOPHILS 1 %; EOSINOPHILS ABSOLUTE (CALC) 0.13 10/3/uL (0.0-0.53); IMMATURE GRANS ABSOLUTE (CALC) 0.13 10/3/uL (0.0-0.11); LYMPHOCYTES 14 %; LYMPHOCYTES ABSOLUTE (CALC) 1.86 10/3/uL (0.67-4.30); METAMYELOCYTES 1 %; MONOCYTES 15 %; NEUTROPHILS ABSOLUTE (CALC) 9.18 10/3/uL (2.02-8.40); PLATELET ESTIMATE ADQ (ADEQUATE); SEGMENTED NEUTROPHIL (0) 67 %; TOTAL NUCLEATED CELLS 100
[2016-12-25 04:44] LABS: BASOPHILS 0.2 %; BASOPHILS ABSOLUTE 0.03 10/3/uL (0.0-0.16); EOSINOPHILS 0.6 %; EOSINOPHILS ABSOLUTE 0.08 10/3/uL (0.0-0.53); HEMATOCRIT 27.9 % (36.0-48.0); HEMOGLOBIN 9.2 g/dL (12.0-16.0); IMMATURE GRANULOCYTES 0.4 %; IMMATURE GRANULOCYTES ABSOLUTE 0.05 10/3/uL (0.0-0.11); LYMPHOCYTES 12.7 %; LYMPHOCYTES ABSOLUTE 1.64 10/3/uL (0.67-4.30); MEAN CORPUSCULAR HEMOGLOB 28.9 pg (26.0-34.0); MEAN CORPUSCULAR VOLUME 87.7 fL (80-100); MEAN PLATELET VOLUME 9.8 fL (9.2-13.0); MONOCYTES 19.1 %; MONOCYTES ABSOLUTE 2.46 10/3/uL (0.21-1.20); NEUTROPHILS ABSOLUTE 8.63 10/3/uL (2.02-8.40); PLATELET COUNT 312 10/3/uL (150-400); RED CELL COUNT 3.18 10/6/uL (4.0-5.6); WHITE BLOOD CELLS 12.9 10/3/uL (4.5-10.5)
[2016-12-25 04:52] LABS: MANUAL DIFF NO %
[2016-12-25 04:56] LABS: ALBUMIN 2.7 G/DL (3.5-5.0); CALCIUM, SERUM 9.3 MG/DL (8.5-10.4); CHLORIDE, SERUM 96 MMOL/L (96-112); CO2 (CARBON DIOXIDE) 27 MMOL/L (24-34); PHOSPHORUS, SERUM 6.3 MG/DL (2.5-4.5); POTASSIUM, SERUM 4.9 MMOL/L (3.5-5.3); SODIUM, SERUM 135 MMOL/L (135-148)
[2016-12-25 04:57] LABS: BUN (BLOOD UREA NITROGEN) 72 MG/DL (6-23); CREATININE 8.99 MG/DL (0.55-1.02); GFR AFRICAN AMERICAN 4 ML/MIN (>=60); GFR NON AFRICAN AMERICAN 4 ML/MIN (>=60); GLUCOSE, SERUM 153 MG/DL (60-99)
[2016-12-26 06:35] LABS: ALBUMIN 2.8 G/DL (3.5-5.0); CALCIUM, SERUM 9.9 MG/DL (8.5-10.4); CHLORIDE, SERUM 99 MMOL/L (96-112); CO2 (CARBON DIOXIDE) 26 MMOL/L (24-34); GFR AFRICAN AMERICAN 7 ML/MIN (>=60); GFR NON AFRICAN AMERICAN 6 ML/MIN (>=60); GLUCOSE, SERUM 138 MG/DL (60-99); PHOSPHORUS, SERUM 6.7 MG/DL (2.5-4.5); POTASSIUM, SERUM 4.5 MMOL/L (3.5-5.3); SODIUM, SERUM 137 MMOL/L (135-148)
[2016-12-26 06:37] LABS: BUN (BLOOD UREA NITROGEN) 40 MG/DL (6-23); CREATININE 6.24 MG/DL (0.55-1.02)
[2016-12-26 07:28] LABS: BASOPHILS 0.5 %; BASOPHILS ABSOLUTE 0.07 10/3/uL (0.0-0.16); EOSINOPHILS 0.4 %; EOSINOPHILS ABSOLUTE 0.06 10/3/uL (0.0-0.53); HEMATOCRIT 28.3 % (36.0-48.0); HEMOGLOBIN 9.3 g/dL (12.0-16.0); IMMATURE GRANULOCYTES 1.1 %; IMMATURE GRANULOCYTES ABSOLUTE 0.17 10/3/uL (0.0-0.11); LYMPHOCYTES 9.2 %; LYMPHOCYTES ABSOLUTE 1.41 10/3/uL (0.67-4.30); MEAN CORPUS HGB CONC 32.9 g/dL (32.0-36.0); MEAN CORPUSCULAR HEMOGLOB 28.8 pg (26.0-34.0); MEAN CORPUSCULAR VOLUME 87.6 fL (80-100); MEAN PLATELET VOLUME 10.4 fL (9.2-13.0); MONOCYTES 16.2 %; NEUTROPHILS 72.6 %; NEUTROPHILS ABSOLUTE 11.18 10/3/uL (2.02-8.40); PLATELET COUNT 336 10/3/uL (150-400); RBC DISTRIBUTION WIDTH 15.1 % (12.0-16.0); RED CELL COUNT 3.23 10/6/uL (4.0-5.6); WHITE BLOOD CELLS 15.4 10/3/uL (4.5-10.5)
[2016-12-26 07:30] LABS: MANUAL DIFF NO %
[2016-12-26 08:01] LABS: PLATELET ESTIMATE ADQ (ADEQUATE)
[2016-12-26 08:02] LABS: RBC MORPHOLOGY NORM (NORMAL)
[2016-12-27 07:49] LABS: HEMATOCRIT 27.6 % (36.0-48.0); HEMOGLOBIN 9.2 g/dL (12.0-16.0); MEAN CORPUS HGB CONC 33.3 g/dL (32.0-36.0); MEAN CORPUSCULAR HEMOGLOB 29.5 pg (26.0-34.0); MEAN CORPUSCULAR VOLUME 88.5 fL (80-100); MEAN PLATELET VOLUME 9.7 fL (9.2-13.0); PLATELET COUNT 357 10/3/uL (150-400); RBC DISTRIBUTION WIDTH 15.1 % (12.0-16.0); RED CELL COUNT 3.12 10/6/uL (4.0-5.6); WHITE BLOOD CELLS 17.6 10/3/uL (4.5-10.5)
[2016-12-27 07:53] LABS: MANUAL DIFF YES %
[2016-12-27 08:07] LABS: BAND NEUTROPHILS 2 %; LYMPHOCYTES 2 %; LYMPHOCYTES ABSOLUTE (CALC) 0.35 10/3/uL (0.67-4.30); MONOCYTES 17 %; MONOCYTES ABSOLUTE (CALC) 2.99 10/3/uL (0.21-1.20); NEUTROPHILS ABSOLUTE (CALC) 14.26 10/3/uL (2.02-8.40); PLATELET ESTIMATE ADQ (ADEQUATE); RBC MORPHOLOGY NORM (NORMAL); SEGMENTED NEUTROPHIL (0) 79 %; TOTAL NUCLEATED CELLS 100
[2016-12-27 08:15] LABS: ALBUMIN 2.8 G/DL (3.5-5.0); CALCIUM, SERUM 9.7 MG/DL (8.5-10.4); CHLORIDE, SERUM 95 MMOL/L (96-112); GFR AFRICAN AMERICAN 5 ML/MIN (>=60); GFR NON AFRICAN AMERICAN 4 ML/MIN (>=60); GLUCOSE, SERUM 114 MG/DL (60-99); PHOSPHORUS, SERUM 7.3 MG/DL (2.5-4.5); POTASSIUM, SERUM 4.9 MMOL/L (3.5-5.3); SODIUM, SERUM 136 MMOL/L (135-148)
[2016-12-27 08:16] LABS: BUN (BLOOD UREA NITROGEN) 64 MG/DL (6-23); CO2 (CARBON DIOXIDE) 20 MMOL/L (24-34); CREATININE 8.12 MG/DL (0.55-1.02)
[2016-12-28 07:33] LABS: HEMATOCRIT 26.6 % (36.0-48.0); HEMOGLOBIN 8.9 g/dL (12.0-16.0); MEAN CORPUS HGB CONC 33.5 g/dL (32.0-36.0); MEAN CORPUSCULAR HEMOGLOB 30.2 pg (26.0-34.0); MEAN CORPUSCULAR VOLUME 90.2 fL (80-100); MEAN PLATELET VOLUME 9.8 fL (9.2-13.0); NUCLEATED RED BLOOD CELLS 2.1 /100WBC (0-0); PLATELET COUNT 425 10/3/uL (150-400); RBC DISTRIBUTION WIDTH 15.1 % (12.0-16.0); RED CELL COUNT 2.95 10/6/uL (4.0-5.6); WHITE BLOOD CELLS 15.4 10/3/uL (4.5-10.5)
[2016-12-28 07:37] LABS: MANUAL DIFF YES %
[2016-12-28 07:58] LABS: BAND NEUTROPHILS 1 %; EOSINOPHILS 1 %; EOSINOPHILS ABSOLUTE (CALC) 0.15 10/3/uL (0.0-0.53); LYMPHOCYTES 4 %; LYMPHOCYTES ABSOLUTE (CALC) 0.62 10/3/uL (0.67-4.30); MONOCYTES 13 %; NEUTROPHILS ABSOLUTE (CALC) 12.63 10/3/uL (2.02-8.40); SEGMENTED NEUTROPHIL (0) 81 %; TOTAL NUCLEATED CELLS 100
[2016-12-28 07:59] LABS: PLATELET ESTIMATE SLT INC (ADEQUATE); RBC MORPHOLOGY NORM (NORMAL)
[2016-12-28 08:59] LABS: ALBUMIN 2.5 G/DL (3.5-5.0); CALCIUM, SERUM 9.3 MG/DL (8.5-10.4); CHLORIDE, SERUM 93 MMOL/L (96-112); CO2 (CARBON DIOXIDE) 21 MMOL/L (24-34); GFR AFRICAN AMERICAN 4 ML/MIN (>=60); GFR NON AFRICAN AMERICAN 3 ML/MIN (>=60); GLUCOSE, SERUM 116 MG/DL (60-99); PHOSPHORUS, SERUM 8.1 MG/DL (2.5-4.5); POTASSIUM, SERUM 5.3 MMOL/L (3.5-5.3); SODIUM, SERUM 134 MMOL/L (135-148)
[2016-12-28 09:00] LABS: BUN (BLOOD UREA NITROGEN) 84 MG/DL (6-23); CREATININE 9.88 MG/DL (0.55-1.02)
[2016-12-29 05:08] LABS: ALBUMIN 2.7 G/DL (3.5-5.0); CHLORIDE, SERUM 99 MMOL/L (96-112); CO2 (CARBON DIOXIDE) 24 MMOL/L (24-34); GLUCOSE, SERUM 134 MG/DL (60-99); PHOSPHORUS, SERUM 8.1 MG/DL (2.5-4.5); POTASSIUM, SERUM 4.9 MMOL/L (3.5-5.3); SODIUM, SERUM 137 MMOL/L (135-148)
[2016-12-29 05:16] LABS: BUN (BLOOD UREA NITROGEN) 51 MG/DL (6-23); CALCIUM, SERUM 10.7 MG/DL (8.5-10.4); CREATININE 7.48 MG/DL (0.55-1.02); GFR AFRICAN AMERICAN 6 ML/MIN (>=60); GFR NON AFRICAN AMERICAN 5 ML/MIN (>=60)
[2016-12-30 08:42] LABS: BASOPHILS 0.2 %; BASOPHILS ABSOLUTE 0.04 10/3/uL (0.0-0.16); EOSINOPHILS 0.1 %; EOSINOPHILS ABSOLUTE 0.03 10/3/uL (0.0-0.53); HEMATOCRIT 24.2 % (36.0-48.0); HEMOGLOBIN 8.2 g/dL (12.0-16.0); IMMATURE GRANULOCYTES 1.8 %; IMMATURE GRANULOCYTES ABSOLUTE 0.43 10/3/uL (0.0-0.11); LYMPHOCYTES 8.8 %; LYMPHOCYTES ABSOLUTE 2.11 10/3/uL (0.67-4.30); MANUAL DIFF NO %; MEAN CORPUS HGB CONC 33.9 g/dL (32.0-36.0); MEAN CORPUSCULAR HEMOGLOB 29.9 pg (26.0-34.0); MEAN CORPUSCULAR VOLUME 88.3 fL (80-100); MEAN PLATELET VOLUME 9.5 fL (9.2-13.0); MONOCYTES ABSOLUTE 3.36 10/3/uL (0.21-1.20); NEUTROPHILS 75.1 %; NEUTROPHILS ABSOLUTE 18.04 10/3/uL (2.02-8.40); PLATELET COUNT 442 10/3/uL (150-400); RBC DISTRIBUTION WIDTH 15.3 % (12.0-16.0); RED CELL COUNT 2.74 10/6/uL (4.0-5.6)
[2016-12-30 08:44] LABS: ALBUMIN 2.5 G/DL (3.5-5.0); BUN (BLOOD UREA NITROGEN) 75 MG/DL (6-23); CALCIUM, SERUM 9.9 MG/DL (8.5-10.4); CHLORIDE, SERUM 97 MMOL/L (96-112); CO2 (CARBON DIOXIDE) 25 MMOL/L (24-34); CREATININE 9.95 MG/DL (0.55-1.02); GFR AFRICAN AMERICAN 4 ML/MIN (>=60); GFR NON AFRICAN AMERICAN 3 ML/MIN (>=60); GLUCOSE, SERUM 130 MG/DL (60-99); POTASSIUM, SERUM 5.4 MMOL/L (3.5-5.3); SODIUM, SERUM 136 MMOL/L (135-148)
[2016-12-30 08:56] LABS: PHOSPHORUS, SERUM 9.1 MG/DL (2.5-4.5)
[2016-12-31 06:51] LABS: HEMATOCRIT 26.2 % (36.0-48.0); HEMOGLOBIN 8.3 g/dL (12.0-16.0); PLATELET COUNT 395 10/3/uL (150-400); RBC DISTRIBUTION WIDTH 15.3 % (12.0-16.0); RED CELL COUNT 2.86 10/6/uL (4.0-5.6)
[2016-12-31 06:59] LABS: MEAN CORPUS HGB CONC 31.7 g/dL (32.0-36.0); MEAN CORPUSCULAR VOLUME 91.6 fL (80-100); WHITE BLOOD CELLS 26.1 10/3/uL (4.5-10.5)
[2016-12-31 07:00] LABS: MANUAL DIFF YES %
[2016-12-31 07:27] LABS: A/G RATIO 0.5 (0.7-1.9); ALBUMIN 2.4 G/DL (3.5-5.0); CALCIUM, SERUM 10.1 MG/DL (8.5-10.4); CHLORIDE, SERUM 98 MMOL/L (96-112); CO2 (CARBON DIOXIDE) 25 MMOL/L (24-34); POTASSIUM, SERUM 4.6 MMOL/L (3.5-5.3); SGOT(AST) 151 U/L (5-40); SGPT(ALT) 7 U/L (5-65); SODIUM, SERUM 138 MMOL/L (135-148); TOTAL BILIRUBIN 0.3 MG/DL (0-1.2); TOTAL PROTEIN 7.4 G/DL (6.0-8.5); ULTRASENSITIVE TSH 0.188 MCIU/ML (0.358-3.740)
[2016-12-31 07:28] LABS: ALKALINE PHOSPHATASE 110 U/L (45-117); BUN (BLOOD UREA NITROGEN) 47 MG/DL (6-23); CREATININE 6.49 MG/DL (0.55-1.02); GFR AFRICAN AMERICAN 7 ML/MIN (>=60); GFR NON AFRICAN AMERICAN 6 ML/MIN (>=60); GLUCOSE, SERUM 167 MG/DL (60-99)
[2016-12-31 07:49] LABS: LYMPHOCYTES 6 %; LYMPHOCYTES ABSOLUTE (CALC) 1.57 10/3/uL (0.67-4.30); MONOCYTES 10 %; MONOCYTES ABSOLUTE (CALC) 2.61 10/3/uL (0.21-1.20); NEUTROPHILS ABSOLUTE (CALC) 21.92 10/3/uL (2.02-8.40); PLATELET ESTIMATE ADQ (ADEQUATE); RBC MORPHOLOGY NORM (NORMAL); SEGMENTED NEUTROPHIL (0) 84 %; TOTAL NUCLEATED CELLS 100
[2017-01-01 08:22] LABS: HEMOGLOBIN 8.2 g/dL (12.0-16.0); MEAN CORPUS HGB CONC 32.8 g/dL (32.0-36.0); MEAN CORPUSCULAR HEMOGLOB 29.1 pg (26.0-34.0); MEAN PLATELET VOLUME 9.4 fL (9.2-13.0); PLATELET COUNT 502 10/3/uL (150-400); RBC DISTRIBUTION WIDTH 15.2 % (12.0-16.0); RED CELL COUNT 2.82 10/6/uL (4.0-5.6)
[2017-01-01 08:24] LABS: MANUAL DIFF YES %; MEAN CORPUSCULAR VOLUME 88.7 fL (80-100)
[2017-01-01 08:30] LABS: ALBUMIN 2.4 G/DL (3.5-5.0); CALCIUM, SERUM 10.6 MG/DL (8.5-10.4); CHLORIDE, SERUM 96 MMOL/L (96-112); CO2 (CARBON DIOXIDE) 25 MMOL/L (24-34); GLUCOSE, SERUM 143 MG/DL (60-99); POTASSIUM, SERUM 4.6 MMOL/L (3.5-5.3); SODIUM, SERUM 134 MMOL/L (135-148)
[2017-01-01 08:31] LABS: BUN (BLOOD UREA NITROGEN) 63 MG/DL (6-23); CREATININE 8.55 MG/DL (0.55-1.02); GFR AFRICAN AMERICAN 5 ML/MIN (>=60); GFR NON AFRICAN AMERICAN 4 ML/MIN (>=60); PHOSPHORUS, SERUM 6.4 MG/DL (2.5-4.5)
[2017-01-01 08:36] LABS: BAND NEUTROPHILS 3 %; IMMATURE GRANS ABSOLUTE (CALC) 0.26 10/3/uL (0.0-0.11); LYMPHOCYTES 8 %; LYMPHOCYTES ABSOLUTE (CALC) 2.08 10/3/uL (0.67-4.30); METAMYELOCYTES 1 %; MONOCYTES 8 %; MONOCYTES ABSOLUTE (CALC) 2.08 10/3/uL (0.21-1.20); NEUTROPHILS ABSOLUTE (CALC) 21.58 10/3/uL (2.02-8.40); PLATELET ESTIMATE SLT INC (ADEQUATE); RBC MORPHOLOGY NORM (NORMAL); SEGMENTED NEUTROPHIL (0) 80 %; TOTAL NUCLEATED CELLS 100
[2017-01-02 07:20] LABS: HEMATOCRIT 27.5 % (36.0-48.0); HEMOGLOBIN 8.8 g/dL (12.0-16.0); MEAN CORPUSCULAR HEMOGLOB 29.6 pg (26.0-34.0); MEAN PLATELET VOLUME 9.9 fL (9.2-13.0); NUCLEATED RED BLOOD CELLS 0.1 /100WBC (0-0); PLATELET COUNT 527 10/3/uL (150-400); RBC DISTRIBUTION WIDTH 15.2 % (12.0-16.0); RED CELL COUNT 2.97 10/6/uL (4.0-5.6)
[2017-01-02 07:21] LABS: MANUAL DIFF YES %; MEAN CORPUSCULAR VOLUME 92.6 fL (80-100); WHITE BLOOD CELLS 27.1 10/3/uL (4.5-10.5)
[2017-01-02 08:04] LABS: ALBUMIN 2.5 G/DL (3.5-5.0); BUN (BLOOD UREA NITROGEN) 42 MG/DL (6-23); CALCIUM, SERUM 10.1 MG/DL (8.5-10.4); CHLORIDE, SERUM 102 MMOL/L (96-112); CO2 (CARBON DIOXIDE) 26 MMOL/L (24-34); CREATININE 5.95 MG/DL (0.55-1.02); FERRITIN 4470 NG/ML (8-252); GFR AFRICAN AMERICAN 7 ML/MIN (>=60); GFR NON AFRICAN AMERICAN 6 ML/MIN (>=60); GLUCOSE, SERUM 231 MG/DL (60-99); IRON, SERUM 44 MCG/DL (35-150); SODIUM, SERUM 140 MMOL/L (135-148)
[2017-01-02 08:05] LABS: FOLATE 6.9 NG/ML (>5.2)
[2017-01-02 09:00] LABS: SED RATE 125 MM/HR (0-20)
[2017-01-02 09:06] LABS: BAND NEUTROPHILS 3 %; IMMATURE GRANS ABSOLUTE (CALC) 1.08 10/3/uL (0.0-0.11); LYMPHOCYTES 4 %; LYMPHOCYTES ABSOLUTE (CALC) 1.08 10/3/uL (0.67-4.30); METAMYELOCYTES 3 %; MONOCYTES 15 %; MONOCYTES ABSOLUTE (CALC) 4.07 10/3/uL (0.21-1.20); MYELOCYTES 1 %; NEUTROPHILS ABSOLUTE (CALC) 20.87 10/3/uL (2.02-8.40); SEGMENTED NEUTROPHIL (0) 74 %; TOTAL NUCLEATED CELLS 100
[2017-01-02 09:07] LABS: PLATELET ESTIMATE INC (ADEQUATE); POLYCHROMASIA 1+ (2-5/OIF) (0-1/OIF); TOXIC GRANULATION 1+
[2017-01-03 06:22] LABS: HEMATOCRIT 26.7 % (36.0-48.0); HEMOGLOBIN 8.4 g/dL (12.0-16.0); MEAN CORPUS HGB CONC 31.5 g/dL (32.0-36.0); MEAN CORPUSCULAR HEMOGLOB 29.3 pg (26.0-34.0); MEAN PLATELET VOLUME 9.9 fL (9.2-13.0); NUCLEATED RED BLOOD CELLS 0.2 /100WBC (0-0); PLATELET COUNT 504 10/3/uL (150-400); RBC DISTRIBUTION WIDTH 15.4 % (12.0-16.0); RED CELL COUNT 2.87 10/6/uL (4.0-5.6)
[2017-01-03 06:23] LABS: MANUAL DIFF YES %; WHITE BLOOD CELLS 26.3 10/3/uL (4.5-10.5)
[2017-01-03 06:33] LABS: ALBUMIN 2.3 G/DL (3.5-5.0); CALCIUM, SERUM 10.3 MG/DL (8.5-10.4); CHLORIDE, SERUM 102 MMOL/L (96-112); CO2 (CARBON DIOXIDE) 26 MMOL/L (24-34); GFR AFRICAN AMERICAN 5 ML/MIN (>=60); GFR NON AFRICAN AMERICAN 5 ML/MIN (>=60); GLUCOSE, SERUM 236 MG/DL (60-99); PHOSPHORUS, SERUM 3.3 MG/DL (2.5-4.5); POTASSIUM, SERUM 4.2 MMOL/L (3.5-5.3); SODIUM, SERUM 143 MMOL/L (135-148)
[2017-01-03 06:35] LABS: BUN (BLOOD UREA NITROGEN) 65 MG/DL (6-23); CREATININE 7.58 MG/DL (0.55-1.02)
[2017-01-03 07:55] LABS: BAND NEUTROPHILS 2 %; EOSINOPHILS 2 %; EOSINOPHILS ABSOLUTE (CALC) 0.53 10/3/uL (0.0-0.53); IMMATURE GRANS ABSOLUTE (CALC) 0.79 10/3/uL (0.0-0.11); LYMPHOCYTES 9 %; LYMPHOCYTES ABSOLUTE (CALC) 2.37 10/3/uL (0.67-4.30); METAMYELOCYTES 2 %; MONOCYTES 13 %; MONOCYTES ABSOLUTE (CALC) 3.42 10/3/uL (0.21-1.20); MYELOCYTES 1 %; SEGMENTED NEUTROPHIL (0) 71 %; TOTAL NUCLEATED CELLS 100
[2017-01-03 07:56] LABS: PLATELET ESTIMATE SLT INC (ADEQUATE); POLYCHROMASIA 1+ (2-5/OIF) (0-1/OIF)
[2017-01-03 07:57] LABS: HELMET CELLS OCC (0-2/OIF); MACROCYTES 1+ (5-10/OIF) (0-5/OIF); SCHISTOCYTES OCC (0-2/OIF); TEARDROP SHAPED RBCS OCC (0-2/OIF)
[2017-01-03 08:02] LABS: PROCALCITONIN 4.06 ng/mL (<0.5)
[2017-01-04 17:52] LABS: ALBUMIN 2.2 G/DL (3.5-5.0); CALCIUM, SERUM 9.7 MG/DL (8.5-10.4); CHLORIDE, SERUM 109 MMOL/L (96-112); SODIUM, SERUM 144 MMOL/L (135-148)
[2017-01-04 17:52] LABS: HEMOGLOBIN 7.6 g/dL (12.0-16.0); MEAN CORPUS HGB CONC 32.8 g/dL (32.0-36.0); MEAN CORPUSCULAR HEMOGLOB 29.8 pg (26.0-34.0); MEAN PLATELET VOLUME 9.9 fL (9.2-13.0); NUCLEATED RED BLOOD CELLS 0.2 /100WBC (0-0); PLATELET COUNT 530 10/3/uL (150-400); RBC DISTRIBUTION WIDTH 15.9 % (12.0-16.0); RED CELL COUNT 2.55 10/6/uL (4.0-5.6)
[2017-01-04 17:53] LABS: HEMATOCRIT 23.2 % (36.0-48.0); WHITE BLOOD CELLS 26.8 10/3/uL (4.5-10.5)
[2017-01-04 17:53] LABS: BUN (BLOOD UREA NITROGEN) 93 MG/DL (6-23); CO2 (CARBON DIOXIDE) 21 MMOL/L (24-34); CREATININE 9.75 MG/DL (0.55-1.02); GFR AFRICAN AMERICAN 4 ML/MIN (>=60); GFR NON AFRICAN AMERICAN 3 ML/MIN (>=60); GLUCOSE, SERUM 174 MG/DL (60-99); PHOSPHORUS, SERUM 4.7 MG/DL (2.5-4.5); POTASSIUM, SERUM 5.1 MMOL/L (3.5-5.3)
[2017-01-04 17:54] LABS: MANUAL DIFF YES %
[2017-01-04 18:05] LABS: IMMATURE GRANS ABSOLUTE (CALC) 0.54 10/3/uL (0.0-0.11); LYMPHOCYTES 5 %; LYMPHOCYTES ABSOLUTE (CALC) 1.34 10/3/uL (0.67-4.30); METAMYELOCYTES 1 %; MONOCYTES 7 %; MONOCYTES ABSOLUTE (CALC) 1.88 10/3/uL (0.21-1.20); MYELOCYTES 1 %; NEUTROPHILS ABSOLUTE (CALC) 23.05 10/3/uL (2.02-8.40); SEGMENTED NEUTROPHIL (0) 86 %; TOTAL NUCLEATED CELLS 100
[2017-01-04 18:07] LABS: HELMET CELLS FEW (3-10/OIF); MACROCYTES 1+ (5-10/OIF) (0-5/OIF); PLATELET ESTIMATE SLT INC (ADEQUATE)
[2017-01-04 18:08] LABS: SCHISTOCYTES OCC (0-2/OIF)
[2017-01-04 18:09] LABS: HYPOCHROMIA 1+ (3-10/OIF) (0-2/OIF); POLYCHROMASIA 1+ (2-5/OIF) (0-1/OIF)
[2017-01-05 05:55] LABS: HEMATOCRIT 26.1 % (36.0-48.0); HEMOGLOBIN 8.2 g/dL (12.0-16.0); MANUAL DIFF YES %; MEAN CORPUS HGB CONC 31.4 g/dL (32.0-36.0); MEAN CORPUSCULAR HEMOGLOB 29.6 pg (26.0-34.0); MEAN CORPUSCULAR VOLUME 94.2 fL (80-100); MEAN PLATELET VOLUME 9.8 fL (9.2-13.0); PLATELET COUNT 511 10/3/uL (150-400); RED CELL COUNT 2.77 10/6/uL (4.0-5.6); WHITE BLOOD CELLS 27.7 10/3/uL (4.5-10.5)
[2017-01-05 06:20] LABS: BAND NEUTROPHILS 6 %; IMMATURE GRANS ABSOLUTE (CALC) 1.11 10/3/uL (0.0-0.11); LYMPHOCYTES 5 %; LYMPHOCYTES ABSOLUTE (CALC) 1.39 10/3/uL (0.67-4.30); METAMYELOCYTES 4 %; MONOCYTES 8 %; MONOCYTES ABSOLUTE (CALC) 2.22 10/3/uL (0.21-1.20); NEUTROPHILS ABSOLUTE (CALC) 22.99 10/3/uL (2.02-8.40); SEGMENTED NEUTROPHIL (0) 77 %; TOTAL NUCLEATED CELLS 100
[2017-01-05 06:21] LABS: HYPOCHROMIA 1+ (3-10/OIF) (0-2/OIF); MACROCYTES 1+ (5-10/OIF) (0-5/OIF); PLATELET ESTIMATE INC (ADEQUATE); POLYCHROMASIA 1+ (2-5/OIF) (0-1/OIF)
[2017-01-05 10:13] LABS: BE (BASE EXCESS) 3.8 MEQ/L (0 +/- 2.5); CARBOXYHEMOGLOBIN 1.4 % (0-3); DEVICE NC; HCO3 (ACTUAL BICARBONATE) 27.4 MEQ/L (23-27); HEMOBLOGIN CONTENT 8.3 G/DL (12-16); INSTRUMENT SERIAL # 8083; METHEMOGLOBIN 0.3 % (0-3); O2 CONTENT 11.2 VOL% (18-24); OPERATOR ID 35859; PCO2 (CO2 TENSION) 37 MMHG (35-45); PO2 (O2 TENSION) 83 MMHG (79-93); SAMPLE Arterial; pH 7.49 (7.37-7.43)
[2017-01-05 18:24] LABS: DIRECT BILIRUBIN 0.1 MG/DL (0.0-0.4); GAMMA GT 67 U/L (5-85); INDIRECT BILIRUBIN(NOT ORDER) 0.2 MG/DL (0.1-0.9); IRON BINDING CAPACITY 136 MCG/DL (225-410); SGPT(ALT) 7 U/L (5-65); TOTAL BILIRUBIN 0.3 MG/DL (0-1.2); TOTAL PROTEIN 7.6 G/DL (6.0-8.5)
[2017-01-05 18:25] LABS: ALBUMIN 2.8 G/DL (3.5-5.0); ALKALINE PHOSPHATASE 137 U/L (45-117)
[2017-01-05 18:26] LABS: CPK 587 U/L (0-200); FREE T4 1.36 NG/DL (0.76-1.46)
[2017-01-05 18:26] LABS: B NATRIURETIC PEPTIDE (BNP) 213.8 PG/ML (< 100.0)
[2017-01-05 18:27] LABS: SGOT(AST) 73 U/L (5-40)
[2017-01-05 18:28] LABS: % IRON SAT 33 % (20-50); IRON, SERUM 45 MCG/DL (35-150); RHEUMATOID FACTOR QUANT < 10 IU/ML (0-15)
[2017-01-05 18:28] LABS: CALCIUM IONIZED 4.91 MG/DL (3.80-4.80)
[2017-01-05 18:40] LABS: CK-MB 4.3 NG/ML; TROPONIN I 0.18 NG/ML (<0.05)
[2017-01-05 19:16] LABS: PROCALCITONIN 1.39 ng/mL (<0.5)
[2017-01-06 05:46] LABS: HEMATOCRIT 27.9 % (36.0-48.0); HEMOGLOBIN 8.5 g/dL (12.0-16.0); MEAN CORPUS HGB CONC 30.5 g/dL (32.0-36.0); MEAN CORPUSCULAR HEMOGLOB 28.9 pg (26.0-34.0); MEAN CORPUSCULAR VOLUME 94.9 fL (80-100); MEAN PLATELET VOLUME 10.2 fL (9.2-13.0); PLATELET COUNT 499 10/3/uL (150-400); RBC DISTRIBUTION WIDTH 16.4 % (12.0-16.0); RED CELL COUNT 2.94 10/6/uL (4.0-5.6)
[2017-01-06 05:49] LABS: ALKALINE PHOSPHATASE 129 U/L (45-117); CHLORIDE, SERUM 102 MMOL/L (96-112); CO2 (CARBON DIOXIDE) 25 MMOL/L (24-34); SODIUM, SERUM 142 MMOL/L (135-148); TOTAL BILIRUBIN 0.7 MG/DL (0-1.2); TOTAL PROTEIN 6.1 G/DL (6.0-8.5); WHITE BLOOD CELLS 32.9 10/3/uL (4.5-10.5)
[2017-01-06 05:50] LABS: A/G RATIO 0.6 (0.7-1.9); ALBUMIN 2.2 G/DL (3.5-5.0); BUN (BLOOD UREA NITROGEN) 58 MG/DL (6-23); CREATININE 5.46 MG/DL (0.55-1.02); GFR AFRICAN AMERICAN 8 ML/MIN (>=60); GFR NON AFRICAN AMERICAN 7 ML/MIN (>=60); GLOBULIN 3.9 G/DL (2.5-4.1); GLUCOSE, SERUM 323 MG/DL (60-99); MANUAL DIFF YES %; POTASSIUM, SERUM 4.5 MMOL/L (3.5-5.3); SGOT(AST) 53 U/L (5-40); SGPT(ALT) < 6 U/L (5-65); TROPONIN I 0.14 NG/ML (<0.05)
[2017-01-06 06:13] LABS: IMMATURE GRANS ABSOLUTE (CALC) 0.99 10/3/uL (0.0-0.11); LYMPHOCYTES 7 %; METAMYELOCYTES 2 %; MONOCYTES 9 %; MONOCYTES ABSOLUTE (CALC) 2.96 10/3/uL (0.21-1.20); MYELOCYTES 1 %; NEUTROPHILS ABSOLUTE (CALC) 26.65 10/3/uL (2.02-8.40); SEGMENTED NEUTROPHIL (0) 81 %; TOTAL NUCLEATED CELLS 100
[2017-01-06 06:14] LABS: PLATELET ESTIMATE INC (ADEQUATE); RBC MORPHOLOGY ABN (NORMAL)
[2017-01-06 10:04] LABS: ANA TITER <1:40 TITER
[2017-01-07 05:46] LABS: HEMOGLOBIN 7.8 g/dL (12.0-16.0); MEAN CORPUSCULAR HEMOGLOB 29.9 pg (26.0-34.0); MEAN CORPUSCULAR VOLUME 93.5 fL (80-100); MEAN PLATELET VOLUME 10.3 fL (9.2-13.0); PLATELET COUNT 522 10/3/uL (150-400); RBC DISTRIBUTION WIDTH 16.2 % (12.0-16.0); RED CELL COUNT 2.61 10/6/uL (4.0-5.6)
[2017-01-07 05:58] LABS: HEMATOCRIT 24.4 % (36.0-48.0); MANUAL DIFF YES %; WHITE BLOOD CELLS 40.9 10/3/uL (4.5-10.5)
[2017-01-07 06:50] LABS: SED RATE > 140 MM/HR (0-20)
[2017-01-07 07:02] LABS: BAND NEUTROPHILS 19 %; LYMPHOCYTES 1 %; LYMPHOCYTES ABSOLUTE (CALC) 0.41 10/3/uL (0.67-4.30); MONOCYTES 3 %; MONOCYTES ABSOLUTE (CALC) 1.23 10/3/uL (0.21-1.20); NEUTROPHILS ABSOLUTE (CALC) 39.26 10/3/uL (2.02-8.40); SEGMENTED NEUTROPHIL (0) 77 %; TOTAL NUCLEATED CELLS 100
[2017-01-07 07:03] LABS: PLATELET ESTIMATE SLT INC (ADEQUATE); POLYCHROMASIA 1+ (2-5/OIF) (0-1/OIF); TOXIC GRANULATION 1+
[2017-01-07 07:57] LABS: SMEAR FOR ABNORMAL CELLS SEE PATHOLOGY REPORT
[2017-01-07 10:22] LABS: ANTI SS-A NEGATIVE (NEGATIVE); ANTI SS-B NEGATIVE (NEGATIVE)
[2017-01-07 13:36] LABS: CSF APPEARANCE (NOT ORD) CLEAR (CLEAR); CSF COLOR (NOT ORD) COLORLESS (COLORLESS); CSF XANTHROCHROMIA NEG (NEG)
[2017-01-07 14:03] LABS: TOTAL PROTEIN, CSF 66.3 MG/DL (15-45)
[2017-01-07 14:05] LABS: CSF BASO 0 % (NO REF RANGE); CSF EOS 0 % (0-1); CSF LYMPH (NOT ORD) 34 % (28-96); CSF MONO 65 % (16-56); CSF SEGS (NOT ORD) 1 % (0-7)
[2017-01-07 14:06] LABS: CSF RBC (NOT ORD) 0 MM3 (NO REFERENCE); CSF WBC (NOT ORD) 2 /uL (0-10)
[2017-01-07 17:34] LABS: ALBUMIN 2.5 G/DL (3.5-5.0); BUN (BLOOD UREA NITROGEN) 44 MG/DL (6-23); CALCIUM, SERUM 10.4 MG/DL (8.5-10.4); CHLORIDE, SERUM 102 MMOL/L (96-112); CO2 (CARBON DIOXIDE) 27 MMOL/L (24-34); CREATININE 4.14 MG/DL (0.55-1.02); GFR AFRICAN AMERICAN 11 ML/MIN (>=60); GFR NON AFRICAN AMERICAN 10 ML/MIN (>=60); GLUCOSE, SERUM 222 MG/DL (60-99); PHOSPHORUS, SERUM 3.4 MG/DL (2.5-4.5); POTASSIUM, SERUM 4.1 MMOL/L (3.5-5.3); SODIUM, SERUM 143 MMOL/L (135-148)
[2017-01-07 23:13] LABS: ANCA <1:20 (()); MYELOPEROXIDASE ANTIBODY <0.2 AI (<1.0); PROTEINASE 3 ANTIBODY <0.2 AI (<1.0)
[2017-01-09 04:45] LABS: HEMOGLOBIN 8.5 g/dL (12.0-16.0); MEAN CORPUS HGB CONC 31.6 g/dL (32.0-36.0); MEAN CORPUSCULAR HEMOGLOB 29.3 pg (26.0-34.0); MEAN CORPUSCULAR VOLUME 92.8 fL (80-100); MEAN PLATELET VOLUME 10.3 fL (9.2-13.0); NUCLEATED RED BLOOD CELLS 0.1 /100WBC (0-0); PLATELET COUNT 448 10/3/uL (150-400); RBC DISTRIBUTION WIDTH 16.3 % (12.0-16.0)
[2017-01-09 04:46] LABS: HEMATOCRIT 26.9 % (36.0-48.0); MANUAL DIFF YES %; WHITE BLOOD CELLS 40.5 10/3/uL (4.5-10.5)
[2017-01-09 04:50] LABS: CALCIUM, SERUM 10.2 MG/DL (8.5-10.4); CHLORIDE, SERUM 98 MMOL/L (96-112); CO2 (CARBON DIOXIDE) 24 MMOL/L (24-34); GFR AFRICAN AMERICAN 6 ML/MIN (>=60); GFR NON AFRICAN AMERICAN 6 ML/MIN (>=60); GLUCOSE, SERUM 255 MG/DL (60-99); SODIUM, SERUM 137 MMOL/L (135-148)
[2017-01-09 04:56] LABS: BUN (BLOOD UREA NITROGEN) 99 MG/DL (6-23); CREATININE 6.59 MG/DL (0.55-1.02)
[2017-01-09 05:28] LABS: ANISOCYTOSIS 1+ (5-10/OIF) (0-5/OIF); BAND NEUTROPHILS 2 %; LYMPHOCYTES 1 %; LYMPHOCYTES ABSOLUTE (CALC) 0.41 10/3/uL (0.67-4.30); MONOCYTES 1 %; MONOCYTES ABSOLUTE (CALC) 0.41 10/3/uL (0.21-1.20); NEUTROPHILS ABSOLUTE (CALC) 39.69 10/3/uL (2.02-8.40); PLATELET ESTIMATE SLT INC (ADEQUATE); RBC MORPHOLOGY ABN (NORMAL); SEGMENTED NEUTROPHIL (0) 96 %; TOTAL NUCLEATED CELLS 100
[2017-01-09 07:24] LABS: PHOSPHORUS, SERUM 5.2 MG/DL (2.5-4.5)
[2017-01-09 12:46] LABS: CALCIUM, SERUM 9.4 MG/DL (8.5-10.4); CHLORIDE, SERUM 101 MMOL/L (96-112); CO2 (CARBON DIOXIDE) 25 MMOL/L (24-34); POTASSIUM, SERUM 4.2 MMOL/L (3.5-5.3); SODIUM, SERUM 140 MMOL/L (135-148)
[2017-01-09 12:47] LABS: BUN (BLOOD UREA NITROGEN) 54 MG/DL (6-23); CREATININE 4.03 MG/DL (0.55-1.02); GFR AFRICAN AMERICAN 12 ML/MIN (>=60); GFR NON AFRICAN AMERICAN 10 ML/MIN (>=60); GLUCOSE, SERUM 151 MG/DL (60-99)
[2017-01-09 22:26] LABS: HEMATOCRIT 25.9 % (36.0-48.0); HEMOGLOBIN 8.2 g/dL (12.0-16.0); MEAN CORPUS HGB CONC 31.7 g/dL (32.0-36.0); MEAN CORPUSCULAR HEMOGLOB 29.2 pg (26.0-34.0); MEAN CORPUSCULAR VOLUME 92.2 fL (80-100); MEAN PLATELET VOLUME 10.1 fL (9.2-13.0); PLATELET COUNT 414 10/3/uL (150-400); RBC DISTRIBUTION WIDTH 16.3 % (12.0-16.0); RED CELL COUNT 2.81 10/6/uL (4.0-5.6)
[2017-01-09 22:32] LABS: MANUAL DIFF YES %; WHITE BLOOD CELLS 37.3 10/3/uL (4.5-10.5)
[2017-01-09 23:05] LABS: BAND NEUTROPHILS 4 %; LYMPHOCYTES 4 %; LYMPHOCYTES ABSOLUTE (CALC) 1.49 10/3/uL (0.67-4.30); MONOCYTES 4 %; MONOCYTES ABSOLUTE (CALC) 1.49 10/3/uL (0.21-1.20); NEUTROPHILS ABSOLUTE (CALC) 34.32 10/3/uL (2.02-8.40); PLATELET ESTIMATE SLT INC (ADEQUATE); SEGMENTED NEUTROPHIL (0) 88 %; TOTAL NUCLEATED CELLS 100
[2017-01-09 23:06] LABS: ANISOCYTOSIS 1+ (5-10/OIF) (0-5/OIF); RBC MORPHOLOGY ABN (NORMAL)
[2017-01-10 04:32] LABS: HEMATOCRIT 23.1 % (36.0-48.0); HEMOGLOBIN 7.2 g/dL (12.0-16.0); MANUAL DIFF YES %; MEAN CORPUS HGB CONC 31.2 g/dL (32.0-36.0); MEAN CORPUSCULAR VOLUME 93.1 fL (80-100); MEAN PLATELET VOLUME 10.2 fL (9.2-13.0); PLATELET COUNT 354 10/3/uL (150-400); RBC DISTRIBUTION WIDTH 16.5 % (12.0-16.0); RED CELL COUNT 2.48 10/6/uL (4.0-5.6); WHITE BLOOD CELLS 34.2 10/3/uL (4.5-10.5)
[2017-01-10 04:48] LABS: ALBUMIN 2.5 G/DL (3.5-5.0); CALCIUM, SERUM 9.7 MG/DL (8.5-10.4); CHLORIDE, SERUM 100 MMOL/L (96-112); CO2 (CARBON DIOXIDE) 22 MMOL/L (24-34); SODIUM, SERUM 137 MMOL/L (135-148)
[2017-01-10 04:50] LABS: BUN (BLOOD UREA NITROGEN) 69 MG/DL (6-23); GFR AFRICAN AMERICAN 9 ML/MIN (>=60); GFR NON AFRICAN AMERICAN 8 ML/MIN (>=60); GLUCOSE, SERUM 309 MG/DL (60-99); PHOSPHORUS, SERUM 6.3 MG/DL (2.5-4.5)
[2017-01-10 05:38] LABS: IMMATURE GRANS ABSOLUTE (CALC) 0.34 10/3/uL (0.0-0.11); LYMPHOCYTES 4 %; LYMPHOCYTES ABSOLUTE (CALC) 1.37 10/3/uL (0.67-4.30); METAMYELOCYTES 1 %; MONOCYTES 3 %; MONOCYTES ABSOLUTE (CALC) 1.03 10/3/uL (0.21-1.20); NEUTROPHILS ABSOLUTE (CALC) 31.46 10/3/uL (2.02-8.40); PLATELET ESTIMATE ADQ (ADEQUATE); RBC MORPHOLOGY ABN (NORMAL); SEGMENTED NEUTROPHIL (0) 92 %; TOTAL NUCLEATED CELLS 100
[2017-01-10 11:14] LABS: HEMATOCRIT 24.9 % (36.0-48.0); HEMOGLOBIN 8.1 g/dL (12.0-16.0)
[2017-01-10 18:56] LABS: HEMATOCRIT 23.1 % (36.0-48.0); HEMOGLOBIN 7.4 g/dL (12.0-16.0)
[2017-01-11 04:48] LABS: HEMOGLOBIN 8.7 g/dL (12.0-16.0); MEAN CORPUS HGB CONC 32.5 g/dL (32.0-36.0); MEAN CORPUSCULAR HEMOGLOB 28.5 pg (26.0-34.0); PLATELET COUNT 319 10/3/uL (150-400); RBC DISTRIBUTION WIDTH 17.9 % (12.0-16.0)
[2017-01-11 04:50] LABS: HEMATOCRIT 26.8 % (36.0-48.0); MEAN CORPUSCULAR VOLUME 87.9 fL (80-100); RED CELL COUNT 3.05 10/6/uL (4.0-5.6); WHITE BLOOD CELLS 35.4 10/3/uL (4.5-10.5)
[2017-01-11 04:51] LABS: MANUAL DIFF YES %
[2017-01-11 06:04] LABS: ANISOCYTOSIS 1+ (5-10/OIF) (0-5/OIF); LYMPHOCYTES 5 %; LYMPHOCYTES ABSOLUTE (CALC) 1.77 10/3/uL (0.67-4.30); MONOCYTES 1 %; MONOCYTES ABSOLUTE (CALC) 0.35 10/3/uL (0.21-1.20); NEUTROPHILS ABSOLUTE (CALC) 33.28 10/3/uL (2.02-8.40); SEGMENTED NEUTROPHIL (0) 94 %; TOTAL NUCLEATED CELLS 100
[2017-01-11 06:05] LABS: PLATELET ESTIMATE ADQ (ADEQUATE); RBC MORPHOLOGY ABN (NORMAL)
[2017-01-11 07:33] LABS: ALBUMIN 2.7 G/DL (3.5-5.0); CALCIUM, SERUM 9.5 MG/DL (8.5-10.4); CHLORIDE, SERUM 97 MMOL/L (96-112); CO2 (CARBON DIOXIDE) 25 MMOL/L (24-34); POTASSIUM, SERUM 5.3 MMOL/L (3.5-5.3); SODIUM, SERUM 138 MMOL/L (135-148)
[2017-01-11 07:34] LABS: CREATININE 6.62 MG/DL (0.55-1.02); GFR AFRICAN AMERICAN 6 ML/MIN (>=60); GFR NON AFRICAN AMERICAN 6 ML/MIN (>=60); GLUCOSE, SERUM 115 MG/DL (60-99); PHOSPHORUS, SERUM 7.8 MG/DL (2.5-4.5)
[2017-01-11 07:43] LABS: BUN (BLOOD UREA NITROGEN) 104 MG/DL (6-23)
[2017-01-11 12:58] LABS: HEMATOCRIT 25.6 % (36.0-48.0); HEMOGLOBIN 8.5 g/dL (12.0-16.0)
[2017-01-11 14:26] LABS: HSV DNA TYPE 1 Not Detected (NOTDET); HSV DNA TYPE 2 Not Detected (NOTDET)
[2017-01-11 17:55] LABS: HEMATOCRIT 26.3 % (36.0-48.0); HEMOGLOBIN 8.7 g/dL (12.0-16.0)
[2017-01-12 04:03] LABS: ALBUMIN 2.2 G/DL (3.5-5.0); CHLORIDE, SERUM 103 MMOL/L (96-112); CO2 (CARBON DIOXIDE) 26 MMOL/L (24-34); SODIUM, SERUM 140 MMOL/L (135-148)
[2017-01-12 04:05] LABS: BUN (BLOOD UREA NITROGEN) 66 MG/DL (6-23); CREATININE 4.83 MG/DL (0.55-1.02); GFR AFRICAN AMERICAN 9 ML/MIN (>=60); GFR NON AFRICAN AMERICAN 8 ML/MIN (>=60); GLUCOSE, SERUM 70 MG/DL (60-99); PHOSPHORUS, SERUM 6.7 MG/DL (2.5-4.5); POTASSIUM, SERUM 5.4 MMOL/L (3.5-5.3)
[2017-01-12 05:02] LABS: MEAN CORPUS HGB CONC 32.8 g/dL (32.0-36.0); MEAN CORPUSCULAR HEMOGLOB 29.3 pg (26.0-34.0); MEAN CORPUSCULAR VOLUME 89.3 fL (80-100); MEAN PLATELET VOLUME 10.5 fL (9.2-13.0); PLATELET COUNT 232 10/3/uL (150-400); RBC DISTRIBUTION WIDTH 17.8 % (12.0-16.0)
[2017-01-12 05:03] LABS: HEMATOCRIT 20.1 % (36.0-48.0); HEMOGLOBIN 6.6 g/dL (12.0-16.0); RED CELL COUNT 2.25 10/6/uL (4.0-5.6); WHITE BLOOD CELLS 29.8 10/3/uL (4.5-10.5)
[2017-01-12 05:05] LABS: MANUAL DIFF YES %
[2017-01-12 05:31] LABS: ANISOCYTOSIS 1+ (5-10/OIF) (0-5/OIF); BAND NEUTROPHILS 1 %; LYMPHOCYTES 6 %; LYMPHOCYTES ABSOLUTE (CALC) 1.79 10/3/uL (0.67-4.30); NEUTROPHILS ABSOLUTE (CALC) 28.01 10/3/uL (2.02-8.40); PLATELET ESTIMATE ADQ (ADEQUATE); SEGMENTED NEUTROPHIL (0) 93 %; TOTAL NUCLEATED CELLS 100
[2017-01-13 04:12] LABS: MEAN CORPUS HGB CONC 33.8 g/dL (32.0-36.0); MEAN CORPUSCULAR HEMOGLOB 28.8 pg (26.0-34.0); MEAN PLATELET VOLUME 10.3 fL (9.2-13.0); PLATELET COUNT 192 10/3/uL (150-400); RBC DISTRIBUTION WIDTH 17.5 % (12.0-16.0)
[2017-01-13 04:16] LABS: HEMATOCRIT 29.6 % (36.0-48.0); MEAN CORPUSCULAR VOLUME 85.3 fL (80-100); RED CELL COUNT 3.47 10/6/uL (4.0-5.6); WHITE BLOOD CELLS 35.9 10/3/uL (4.5-10.5)
[2017-01-13 04:17] LABS: MANUAL DIFF YES %
[2017-01-13 04:32] LABS: ALBUMIN 2.2 G/DL (3.5-5.0); CALCIUM, SERUM 9.1 MG/DL (8.5-10.4); CHLORIDE, SERUM 104 MMOL/L (96-112); CO2 (CARBON DIOXIDE) 22 MMOL/L (24-34); CREATININE 4.68 MG/DL (0.55-1.02); GFR AFRICAN AMERICAN 10 ML/MIN (>=60); GFR NON AFRICAN AMERICAN 8 ML/MIN (>=60); PHOSPHORUS, SERUM 7.2 MG/DL (2.5-4.5); POTASSIUM, SERUM 5.2 MMOL/L (3.5-5.3); SODIUM, SERUM 138 MMOL/L (135-148)
[2017-01-13 04:35] LABS: BUN (BLOOD UREA NITROGEN) 72 MG/DL (6-23); GLUCOSE, SERUM 126 MG/DL (60-99)
[2017-01-13 04:52] LABS: BAND NEUTROPHILS 2 %; LYMPHOCYTES 1 %; LYMPHOCYTES ABSOLUTE (CALC) 0.36 10/3/uL (0.67-4.30); MONOCYTES 2 %; MONOCYTES ABSOLUTE (CALC) 0.72 10/3/uL (0.21-1.20); NEUTROPHILS ABSOLUTE (CALC) 34.82 10/3/uL (2.02-8.40); PLATELET ESTIMATE ADQ (ADEQUATE); RBC MORPHOLOGY ABN (NORMAL); SEGMENTED NEUTROPHIL (0) 95 %; TOTAL NUCLEATED CELLS 100
[2017-01-13 16:14] LABS: M.TB COMP PCR NON RESP NOT DETECTED (NOTDET)
[2017-01-14 06:08] LABS: HEMATOCRIT 30.6 % (36.0-48.0); HEMOGLOBIN 10.2 g/dL (12.0-16.0); MEAN CORPUS HGB CONC 33.3 g/dL (32.0-36.0); MEAN CORPUSCULAR HEMOGLOB 28.7 pg (26.0-34.0); MEAN PLATELET VOLUME 10.8 fL (9.2-13.0); RBC DISTRIBUTION WIDTH 16.8 % (12.0-16.0); RED CELL COUNT 3.56 10/6/uL (4.0-5.6)
[2017-01-14 06:10] LABS: PLATELET COUNT 322 10/3/uL (150-400)
[2017-01-14 06:12] LABS: MANUAL DIFF YES %
[2017-01-14 06:14] LABS: CALCIUM, SERUM 9.6 MG/DL (8.5-10.4); CHLORIDE, SERUM 95 MMOL/L (96-112); CO2 (CARBON DIOXIDE) 20 MMOL/L (24-34); PHOSPHORUS, SERUM 6.8 MG/DL (2.5-4.5); SODIUM, SERUM 132 MMOL/L (135-148)
[2017-01-14 06:19] LABS: ALBUMIN 2.7 G/DL (3.5-5.0); BUN (BLOOD UREA NITROGEN) 97 MG/DL (6-23); CREATININE 5.68 MG/DL (0.55-1.02); GFR AFRICAN AMERICAN 8 ML/MIN (>=60); GFR NON AFRICAN AMERICAN 7 ML/MIN (>=60); GLUCOSE, SERUM 70 MG/DL (60-99); POTASSIUM, SERUM 5.8 MMOL/L (3.5-5.3)
[2017-01-14 06:44] LABS: BAND NEUTROPHILS 1 %; LYMPHOCYTES 2 %; LYMPHOCYTES ABSOLUTE (CALC) 0.98 10/3/uL (0.67-4.30); MONOCYTES 3 %; MONOCYTES ABSOLUTE (CALC) 1.47 10/3/uL (0.21-1.20); NEUTROPHILS ABSOLUTE (CALC) 46.55 10/3/uL (2.02-8.40); SEGMENTED NEUTROPHIL (0) 94 %; TOTAL NUCLEATED CELLS 100
[2017-01-14 06:45] LABS: PLATELET ESTIMATE ADQ (ADEQUATE); SPHEROCYTES FEW (3-10/OIF)
[2017-01-15 07:41] LABS: ALBUMIN 2.4 G/DL (3.5-5.0); CALCIUM, SERUM 8.7 MG/DL (8.5-10.4); CHLORIDE, SERUM 100 MMOL/L (96-112); CO2 (CARBON DIOXIDE) 24 MMOL/L (24-34); HEMATOCRIT 28.7 % (36.0-48.0); HEMOGLOBIN 9.6 g/dL (12.0-16.0); MEAN CORPUS HGB CONC 33.4 g/dL (32.0-36.0); MEAN CORPUSCULAR HEMOGLOB 29.1 pg (26.0-34.0); MEAN PLATELET VOLUME 10.9 fL (9.2-13.0); PLATELET COUNT 227 10/3/uL (150-400); RBC DISTRIBUTION WIDTH 16.9 % (12.0-16.0); SODIUM, SERUM 137 MMOL/L (135-148)
[2017-01-15 07:42] LABS: BUN (BLOOD UREA NITROGEN) 67 MG/DL (6-23); CREATININE 4.59 MG/DL (0.55-1.02); GFR AFRICAN AMERICAN 10 ML/MIN (>=60); GFR NON AFRICAN AMERICAN 9 ML/MIN (>=60); GLUCOSE, SERUM 91 MG/DL (60-99); PHOSPHORUS, SERUM 5.1 MG/DL (2.5-4.5)
[2017-01-15 07:43] LABS: POTASSIUM, SERUM 4.5 MMOL/L (3.5-5.3)
[2017-01-15 07:47] LABS: MANUAL DIFF YES %; WHITE BLOOD CELLS 35.3 10/3/uL (4.5-10.5)
[2017-01-15 07:51] LABS: BAND NEUTROPHILS 4 %; EOSINOPHILS 1 %; EOSINOPHILS ABSOLUTE (CALC) 0.35 10/3/uL (0.0-0.53); GIANT PLATELET OCC; IMMATURE GRANS ABSOLUTE (CALC) 0.35 10/3/uL (0.0-0.11); METAMYELOCYTES 1 %; NEUTROPHILS ABSOLUTE (CALC) 34.59 10/3/uL (2.02-8.40); OVALOCYTES 1+ (3-10/OIF) (0-2/OIF); PLATELET ESTIMATE ADQ (ADEQUATE); POIKILOCYTOSIS 1+ (5-10/OIF) (0-5/OIF); POLYCHROMASIA 1+ (2-5/OIF) (0-1/OIF); SEGMENTED NEUTROPHIL (0) 94 %; TOTAL NUCLEATED CELLS 100; TOXIC GRANULATION 1+; VACUOLATED NEUTROPHILES OCC
[2017-01-16 07:26] LABS: CALCIUM, SERUM 8.1 MG/DL (8.5-10.4); CHLORIDE, SERUM 101 MMOL/L (96-112); CO2 (CARBON DIOXIDE) 23 MMOL/L (24-34); GFR AFRICAN AMERICAN 7 ML/MIN (>=60); GFR NON AFRICAN AMERICAN 6 ML/MIN (>=60); GLUCOSE, SERUM 75 MG/DL (60-99); PHOSPHORUS, SERUM 5.3 MG/DL (2.5-4.5); POTASSIUM, SERUM 4.7 MMOL/L (3.5-5.3); SODIUM, SERUM 137 MMOL/L (135-148)
[2017-01-16 07:33] LABS: BUN (BLOOD UREA NITROGEN) 77 MG/DL (6-23); CREATININE 5.94 MG/DL (0.55-1.02)
[2017-01-16 07:34] LABS: MEAN CORPUS HGB CONC 32.2 g/dL (32.0-36.0); MEAN CORPUSCULAR HEMOGLOB 28.3 pg (26.0-34.0); MEAN CORPUSCULAR VOLUME 87.7 fL (80-100); MEAN PLATELET VOLUME 11.1 fL (9.2-13.0); PLATELET COUNT 213 10/3/uL (150-400); RBC DISTRIBUTION WIDTH 17.2 % (12.0-16.0); RED CELL COUNT 2.69 10/6/uL (4.0-5.6)
[2017-01-16 07:37] LABS: HEMATOCRIT 23.6 % (36.0-48.0); HEMOGLOBIN 7.6 g/dL (12.0-16.0); MANUAL DIFF YES %; WHITE BLOOD CELLS 35.5 10/3/uL (4.5-10.5)
[2017-01-16 07:48] LABS: ANISOCYTOSIS 1+ (5-10/OIF) (0-5/OIF); BAND NEUTROPHILS 12 %; LYMPHOCYTES 3 %; LYMPHOCYTES ABSOLUTE (CALC) 1.07 10/3/uL (0.67-4.30); MONOCYTES 2 %; MONOCYTES ABSOLUTE (CALC) 0.71 10/3/uL (0.21-1.20); NEUTROPHILS ABSOLUTE (CALC) 33.73 10/3/uL (2.02-8.40); PLATELET ESTIMATE ADQ (ADEQUATE); POLYCHROMASIA 1+ (2-5/OIF) (0-1/OIF); SEGMENTED NEUTROPHIL (0) 83 %; TOTAL NUCLEATED CELLS 100
[2017-01-17 06:24] LABS: CALCIUM, SERUM 8.2 MG/DL (8.5-10.4); CHLORIDE, SERUM 104 MMOL/L (96-112); CO2 (CARBON DIOXIDE) 27 MMOL/L (24-34); PHOSPHORUS, SERUM 4.4 MG/DL (2.5-4.5); POTASSIUM, SERUM 4.4 MMOL/L (3.5-5.3); SODIUM, SERUM 142 MMOL/L (135-148)
[2017-01-17 06:25] LABS: BUN (BLOOD UREA NITROGEN) 38 MG/DL (6-23)
[2017-01-17 06:26] LABS: CREATININE 4.55 MG/DL (0.55-1.02); GFR AFRICAN AMERICAN 10 ML/MIN (>=60); GFR NON AFRICAN AMERICAN 9 ML/MIN (>=60); GLUCOSE, SERUM 118 MG/DL (60-99); HEMATOCRIT 23.4 % (36.0-48.0); HEMOGLOBIN 7.7 g/dL (12.0-16.0); MEAN CORPUS HGB CONC 32.9 g/dL (32.0-36.0); MEAN CORPUSCULAR HEMOGLOB 29.5 pg (26.0-34.0); MEAN CORPUSCULAR VOLUME 89.7 fL (80-100); MEAN PLATELET VOLUME 11.3 fL (9.2-13.0); PLATELET COUNT 217 10/3/uL (150-400); RBC DISTRIBUTION WIDTH 17.3 % (12.0-16.0); RED CELL COUNT 2.61 10/6/uL (4.0-5.6)
[2017-01-17 06:28] LABS: MANUAL DIFF YES %; WHITE BLOOD CELLS 19.7 10/3/uL (4.5-10.5)
[2017-01-17 06:48] LABS: ANISOCYTOSIS 1+ (5-10/OIF) (0-5/OIF); BAND NEUTROPHILS 2 %; LYMPHOCYTES 2 %; LYMPHOCYTES ABSOLUTE (CALC) 0.39 10/3/uL (0.67-4.30); MONOCYTES 3 %; MONOCYTES ABSOLUTE (CALC) 0.59 10/3/uL (0.21-1.20); NEUTROPHILS ABSOLUTE (CALC) 18.72 10/3/uL (2.02-8.40); PLATELET ESTIMATE ADQ (ADEQUATE); SEGMENTED NEUTROPHIL (0) 93 %; TOTAL NUCLEATED CELLS 100
[2017-01-18 18:35] LABS: BASOPHILS 0.1 %; BASOPHILS ABSOLUTE 0.02 10/3/uL (0.0-0.16); EOSINOPHILS 0.4 %; EOSINOPHILS ABSOLUTE 0.08 10/3/uL (0.0-0.53); HEMATOCRIT 21.2 % (36.0-48.0); IMMATURE GRANULOCYTES 1.2 %; IMMATURE GRANULOCYTES ABSOLUTE 0.22 10/3/uL (0.0-0.11); LYMPHOCYTES 3.4 %; LYMPHOCYTES ABSOLUTE 0.62 10/3/uL (0.67-4.30); MEAN CORPUS HGB CONC 32.1 g/dL (32.0-36.0); MEAN CORPUSCULAR HEMOGLOB 28.8 pg (26.0-34.0); MEAN CORPUSCULAR VOLUME 89.8 fL (80-100); MEAN PLATELET VOLUME 10.4 fL (9.2-13.0); MONOCYTES 4.4 %; NEUTROPHILS 90.5 %; PLATELET COUNT 262 10/3/uL (150-400); RBC DISTRIBUTION WIDTH 17.4 % (12.0-16.0); RED CELL COUNT 2.36 10/6/uL (4.0-5.6); WHITE BLOOD CELLS 18.1 10/3/uL (4.5-10.5)
[2017-01-18 18:38] LABS: HEMOGLOBIN 6.8 g/dL (12.0-16.0); MANUAL DIFF NO %
[2017-01-18 18:45] LABS: ALBUMIN 1.8 G/DL (3.5-5.0); CHLORIDE, SERUM 105 MMOL/L (96-112); CO2 (CARBON DIOXIDE) 25 MMOL/L (24-34); POTASSIUM, SERUM 4.4 MMOL/L (3.5-5.3); SODIUM, SERUM 142 MMOL/L (135-148)
[2017-01-18 18:46] LABS: BUN (BLOOD UREA NITROGEN) 54 MG/DL (6-23); CREATININE 6.68 MG/DL (0.55-1.02); GFR AFRICAN AMERICAN 6 ML/MIN (>=60); GFR NON AFRICAN AMERICAN 6 ML/MIN (>=60); GLUCOSE, SERUM 86 MG/DL (60-99); PHOSPHORUS, SERUM 5.4 MG/DL (2.5-4.5)
== END 2017-01-19 17:25 | disposition hospice, inpatient (51) | DRG 239 ==
LOC: ER 10:40 → MIC 14:17 → 2SO 12-24 16:14 → IMCU 01-04 20:50 → 2SO 01-14 10:05
PROVIDERS: Emergency Medicine; Internal Medicine Nephrology; Nurse Practitioner; Psychiatry & Neurology Neurology; Registered Nurse; Student in an Organized Health Care Education/Training Program
PROC: B41F1ZZ Fluoroscopy of Right Lower Extremity Arteries using Low Osmolar Contrast (ICD-10-PCS; 2016-12-21 12:15)
PROC: 0Y6H0Z1 Detachment at Right Lower Leg, High, Open Approach (ICD-10-PCS; principal; 2016-12-25 13:45)
PROC: 0DH67UZ Insertion of Feeding Device into Stomach, Via Natural or Artificial Opening (ICD-10-PCS; 2017-01-01)
PROC: 3E0G76Z Introduction of Nutritional Substance into Upper GI, Via Natural or Artificial Opening (ICD-10-PCS; 2017-01-01)
PROC: 009U3ZX Drainage of Spinal Canal, Percutaneous Approach, Diagnostic (ICD-10-PCS; 2017-01-07)
PROC: B01B1ZZ Fluoroscopy of Spinal Cord using Low Osmolar Contrast (ICD-10-PCS; 2017-01-07)
PROC: 30233N1 Transfusion of Nonautologous Red Blood Cells into Peripheral Vein, Percutaneous Approach (ICD-10-PCS; 2017-01-10)
PROC: 0Y6C0Z2 Detachment at Right Upper Leg, Mid, Open Approach (ICD-10-PCS; 2017-01-16)
DX: T82.898A Other specified complication of vascular prosthetic devices, implants and grafts, initial encounter (principal); A41.9 Sepsis, unspecified organism; G92 Toxic encephalopathy; N18.6 End stage renal disease; I12.0 Hypertensive chronic kidney disease with stage 5 chronic kidney disease or end stage renal disease; I24.8 Other forms of acute ischemic heart disease; E08.22 Diabetes mellitus due to underlying condition with diabetic chronic kidney disease; K92.2 Gastrointestinal hemorrhage, unspecified; D62 Acute posthemorrhagic anemia; E87.1 Hypo-osmolality and hyponatremia; E87.5 Hyperkalemia; E11.22 Type 2 diabetes mellitus with diabetic chronic kidney disease; Z51.5 Encounter for palliative care; I48.0 Paroxysmal atrial fibrillation; I25.10 Atherosclerotic heart disease of native coronary artery without angina pectoris; K21.9 Gastro-esophageal reflux disease without esophagitis; E78.5 Hyperlipidemia, unspecified; E11.51 Type 2 diabetes mellitus with diabetic peripheral angiopathy without gangrene; R19.7 Diarrhea, unspecified; E87.6 Hypokalemia; Y92.239 Unspecified place in hospital as the place of occurrence of the external cause; R31.9 Hematuria, unspecified; T40.605A Adverse effect of unspecified narcotics, initial encounter; Z99.2 Dependence on renal dialysis; Z95.1 Presence of aortocoronary bypass graft; Z95.5 Presence of coronary angioplasty implant and graft; Z88.5 Allergy status to narcotic agent; Z88.6 Allergy status to analgesic agent; Z98.890 Other specified postprocedural states; Z89.511 Acquired absence of right leg below knee; Z79.4 Long term (current) use of insulin
CPT/HCPCS: 27590; 36245; 36415; 62270; 70450; 70551; 71010; 71110; 72129; 72132; 74000; 75625; 75710; 77003; 78278; 80048; 80053; 80069; 80076; 80202; 81001; 82009; 82140; 82164; 82272; 82330; 82550; 82553; 82607; 82728; 82746; 82803; 82805; 82945; 82947; 82962; 82977; 83516; 83516-59; 83540; 83550; 83690; 83735; 83880; 84100; 84132; 84145; 84157; 84295; 84439; 84443; 84466; 84484; 85014; 85018; 85025; 85652; 86039; 86140; 86225; 86235; 86235-59; 86255; 86431; 86592; 86800; 86850; 86900; 86901; 86920; 87015; 87040; 87070; 87075; 87102; 87116; 87205; 87210; 87327; 87493; 87493-59; 87529; 87529-59; 87556; 87641; 88112; 88307; 88311; 89051; 92610-GN; 93005; 93306; 93880; 93926; 95816; 96374; 96375; 97162-GP; 97164-GP; 97166-GO; 97530-GP; 99291; A9270-GY; A9560; C1769; C1894; C9113; G0257; J0360; J0610; J0690; J0692; J0885; J1170; J1610; J1720; J2150; J2250; J2370; J2405; J2930; J3010; J3370; J3411; J3486; P9016; P9047; Q9966; Q9967